=== PATIENT | male | born 2000 | race Asian ===

== ENCOUNTER 2023-06-29 21:14 | Inpatient (IN) ==
--- NOTE | 2023-06-29 22:53 | Emergency Department Note ---
History of Present Illness General Chief complaint: Rectal Pain Stated complaint: RECTAL PAIN, HURTS TO SIT Time Seen by Provider: 06/29/23 22:48 History of Present Illness Maximum Pain Intensity: 9 NAME: KWAKU GATES AGE: 23 SEX: M : 2000 ARRIVES VIA: Walk-In INFORMANT: Patient ED PROVIDER(S): LIBBY Busch, Omer Hernandez MD Patient is a well-appearing 23-year-old male who arrives to the emergency department for evaluation of rectal pain. He reports the pain began on Wednesday, and worsens with sitting. He denies any painful bowel movements, blood in stool, or recent trauma. He states he feels pain to the left lateral rectum, tender to palpation. He denies fever, abdominal pain, nausea, vomiting at this time. Home Medications Medication Instructions Recorded Confirmed Type No Known Home Medications 06/30/23 06/30/23 History Allergies Allergy/AdvReac Type Severity Reaction Status Date / Time No Known Allergies Allergy Verified 06/30/23 02:28 Past Med/Surg History Social History Smoking Status: Former smoker Tobacco Type: Cigarettes Second Hand Exposure: No; Do You Dip or Chew Tobacco: No; Tobacco Cessation Education Requested by Patient: No Hx Alcohol Use: No Hx Substance Use: No Preferred Language: Luxembourger Communication Ability: Effective Vocal Music Teacher Required: No Beliefs That Will Affect Care: None Current Living Situation: Other Current Living Situation Comment: student at [employer] Other Information That Helps Us Care for You: No Feels Safe at Home: Yes Safety Concerns: Feels Safe At This Time Assistive Devices: None Physical Exam Vital Signs Vital Signs - 24 hr 06/29/23 21:25 06/29/23 23:15 06/30/23 02:44 Temperature 36.5 C 37.1 C Temperature Source Temporal Artery Scan Oral Pulse Rate 133 H Pulse Rate [Apical] Pulse Rate [Right Finger] 109 H 92 H Pulse Rate from SpO2 Sensor Pulse Rhythm [Apical] Pulse Strength [Apical] Respiratory Rate 17 20 18 Respiratory Effort / Characteristics Non-Labored Spontaneous Respiratory Depth Normal Respiratory Pattern Blood Pressure 187/115 H Blood Pressure [Left Arm] 144/91 H 164/103 H Blood Pressure Mean 139 Blood Pressure Mean [Left Arm] 108 123 Blood Pressure Position [Left Arm] Right Lateral Pulse Oximetry 94 96 97 Oxygen Delivery Method Room Air Room Air Room Air Oxygen Flow Rate Sepsis Recent Fever Within 48 Hours No Sepsis New/Unexplained Change in Mental Status No Sepsis Action Taken by Nursing No Action Required 06/30/23 03:29 06/30/23 05:00 06/30/23 05:21 Temperature 36.8 C Temperature Source Oral Pulse Rate 108 H Pulse Rate [Apical] Pulse Rate [Right Finger] 98 H Pulse Rate from SpO2 Sensor Pulse Rhythm [Apical] Pulse Strength [Apical] Respiratory Rate 18 Respiratory Effort / Characteristics Non-Labored Spontaneous Non-Labored Respiratory Depth Normal Normal Respiratory Pattern Blood Pressure Blood Pressure [Left Arm] 148/101 H Blood Pressure Mean Blood Pressure Mean [Left Arm] 116 Blood Pressure Position [Left Arm] Pulse Oximetry 97 Oxygen Delivery Method Room Air Oxygen Flow Rate Sepsis Recent Fever Within 48 Hours Sepsis New/Unexplained Change in Mental Status Sepsis Action Taken by Nursing 06/30/23 05:21 06/30/23 06:00 06/30/23 07:00 Temperature Temperature Source Pulse Rate 108 H 90 87 Pulse Rate [Apical] Pulse Rate [Right Finger] Pulse Rate from SpO2 Sensor 108 H 91 H 87 Pulse Rhythm [Apical] Pulse Strength [Apical] Respiratory Rate 28 H 26 H 22 Respiratory Effort / Characteristics Respiratory Depth Respiratory Pattern Blood Pressure Blood Pressure [Left Arm] Blood Pressure Mean Blood Pressure Mean [Left Arm] Blood Pressure Position [Left Arm] Pulse Oximetry 94 95 96 Oxygen Delivery Method Oxygen Flow Rate Sepsis Recent Fever Within 48 Hours Sepsis New/Unexplained Change in Mental Status Sepsis Action Taken by Nursing 06/30/23 08:11 06/30/23 09:43 06/30/23 09:50 Temperature 36.7 C 36.2 C L Temperature Source Oral Temporal Artery Scan Temporal Artery Scan Pulse Rate Pulse Rate [Apical] 92 H 89 Pulse Rate [Right Finger] 97 H Pulse Rate from SpO2 Sensor Pulse Rhythm [Apical] Regular Regular Pulse Strength [Apical] Normal Normal Respiratory Rate 18 19 12 Respiratory Effort / Characteristics Non-Labored Spontaneous Non-Labored Spontaneous Non-Labored Spontaneous Respiratory Depth Normal Normal Normal Respiratory Pattern Regular Regular Regular Blood Pressure Blood Pressure [Left Arm] 144/105 H 157/88 H 146/94 H Blood Pressure Mean Blood Pressure Mean [Left Arm] 118 111 111 Blood Pressure Position [Left Arm] Semi-fowlers Lying Lying Pulse Oximetry 98 95 96 Oxygen Delivery Method Room Air Oxymask Oxymask Oxygen Flow Rate 6 6 Sepsis Recent Fever Within 48 Hours Sepsis New/Unexplained Change in Mental Status Sepsis Action Taken by Nursing 06/30/23 10:00 06/30/23 10:10 06/30/23 10:20 Temperature Temperature Source Temporal Artery Scan Pulse Rate Pulse Rate [Apical] 85 92 H 90 Pulse Rate [Right Finger] Pulse Rate from SpO2 Sensor Pulse Rhythm [Apical] Regular Regular Regular Pulse Strength [Apical] Normal Normal Normal Respiratory Rate 21 17 16 Respiratory Effort / Characteristics Non-Labored Spontaneous Non-Labored Spontaneous Non-Labored Spontaneous Respiratory Depth Normal Normal Normal Respiratory Pattern Regular Regular Regular Blood Pressure Blood Pressure [Left Arm] 136/83 142/89 H 142/85 H Blood Pressure Mean Blood Pressure Mean [Left Arm] 100 106 104 Blood Pressure Position [Left Arm] Lying Semi-fowlers Semi-fowlers Pulse Oximetry 94 97 94 Oxygen Delivery Method Oxymask Oxymask Room Air Oxygen Flow Rate 6 6 Sepsis Recent Fever Within 48 Hours Sepsis New/Unexplained Change in Mental Status Sepsis Action Taken by Nursing 06/30/23 10:30 06/30/23 10:40 06/30/23 10:55 Temperature 36.7 C Temperature Source Temporal Artery Scan Temporal Artery Scan Temporal Artery Scan Pulse Rate Pulse Rate [Apical] 93 H 96 H 91 H Pulse Rate [Right Finger] Pulse Rate from SpO2 Sensor Pulse Rhythm [Apical] Regular Regular Regular Pulse Strength [Apical] Normal Normal Normal Respiratory Rate 16 18 20 Respiratory Effort / Characteristics Non-Labored Spontaneous Non-Labored Spontaneous Non-Labored Spontaneous Respiratory Depth Normal Normal Normal Respiratory Pattern Regular Regular Regular Blood Pressure Blood Pressure [Left Arm] 149/96 H 139/90 143/89 H Blood Pressure Mean Blood Pressure Mean [Left Arm] 113 106 107 Blood Pressure Position [Left Arm] Semi-fowlers Semi-fowlers Semi-fowlers Pulse Oximetry 94 93 94 Oxygen Delivery Method Room Air Room Air Room Air Oxygen Flow Rate Sepsis Recent Fever Within 48 Hours Sepsis New/Unexplained Change in Mental Status Sepsis Action Taken by Nursing 06/30/23 11:10 06/30/23 11:25 06/30/23 11:40 Temperature Temperature Source Temporal Artery Scan Temporal Artery Scan Temporal Artery Scan Pulse Rate Pulse Rate [Apical] 96 H 94 H 93 H Pulse Rate [Right Finger] Pulse Rate from SpO2 Sensor Pulse Rhythm [Apical] Regular Regular Regular Pulse Strength [Apical] Normal Normal Normal Respiratory Rate 17 20 20 Respiratory Effort / Characteristics Non-Labored Spontaneous Non-Labored Spontaneous Non-Labored Spontaneous Respiratory Depth Normal Normal Normal Respiratory Pattern Regular Regular Regular Blood Pressure Blood Pressure [Left Arm] 140/85 138/87 132/84 Blood Pressure Mean Blood Pressure Mean [Left Arm] 103 104 100 Blood Pressure Position [Left Arm] Semi-fowlers Semi-fowlers Semi-fowlers Pulse Oximetry 92 93 92 Oxygen Delivery Method Room Air Room Air Room Air Oxygen Flow Rate Sepsis Recent Fever Within 48 Hours Sepsis New/Unexplained Change in Mental Status Sepsis Action Taken by Nursing 06/30/23 12:10 06/30/23 12:40 Temperature 37.0 C 37.0 C Temperature Source Temporal Artery Scan Temporal Artery Scan Pulse Rate Pulse Rate [Apical] 98 H 98 H Pulse Rate [Right Finger] Pulse Rate from SpO2 Sensor Pulse Rhythm [Apical] Regular Regular Pulse Strength [Apical] Normal Normal Respiratory Rate 20 16 Respiratory Effort / Characteristics Non-Labored Spontaneous Non-Labored Spontaneous Respiratory Depth Normal Normal Respiratory Pattern Regular Regular Blood Pressure Blood Pressure [Left Arm] 134/82 134/82 Blood Pressure Mean Blood Pressure Mean [Left Arm] 99 99 Blood Pressure Position [Left Arm] Semi-fowlers Semi-fowlers Pulse Oximetry 94 95 Oxygen Delivery Method Room Air Room Air Oxygen Flow Rate Sepsis Recent Fever Within 48 Hours Sepsis New/Unexplained Change in Mental Status Sepsis Action Taken by Nursing VITALS: Vitals are noted on the nurse's note and reviewed by myself. Vital signs stable. GENERAL: [], in no acute distress, nondiaphoretic, well-developed well- nourished. SKIN: The skin was without rashes, erythema, edema, or bruising. HEAD: Normocephalic atraumatic. EARS: External auditory canals clear, tympanic membranes pearly mcmanus without erythema or effusion bilaterally. EYES: Pupils equal round and reactive to light and accommodation. Conjunctivae without injection, sclerae without icterus. Extraocular movements intact. NOSE: Patent, turbinates without inflammation or discharge. No sinus tenderness. MOUTH: Mucous membranes moist. Tonsils are not enlarged. Pharynx without erythema or exudate. Uvula midline. Airway patent. Tongue does not deviate. NECK: Supple without nuchal rigidity. No lymphadenopathy. No thyromegaly. Cervical spine is nontender. No JVD. HEART: Regular rate and rhythm without murmurs gallops or rubs. LUNGS: Clear to auscultation bilaterally without wheezes, rales or rhonchi. No retractions or accessory muscle use. ABDOMEN: Positive bowel sounds x 4. Soft, nontender, without masses or organomegaly. Mcleod sign negative. No guarding or rebound tenderness. MUSCULOSKELETAL: No muscle atrophy, erythema, or edema noted. Full range of motion without joint tenderness in all extremities. No tenderness to palpation. Normal gait. Strength 5/5 throughout. NEURO: Patient was alert and oriented to person place and time. No focal neurological deficits. Course Administered Medications Acetaminophen (Acetaminophen 325 Mg Tab) 650 mg PO Q4H PRN PRN Reason: Pain or Fever Stop: 07/30/23 13:11 Last Admin: 06/30/23 15:37 Dose: 650 mg Documented By: GLADYS Piperacillin Sod/Tazobactam (Sod 4.5 gm/ Dextrose) 100 mls @ 25 mls/hr IV Q8H [facility]; Protocol Stop: 07/10/23 07:59 Last Admin: 06/30/23 16:27 Dose: 25 mls/hr Documented By: Infusion: 06/30/23 13:12 Dose: Infused Documented By: Admin: 06/30/23 07:43 Dose: 25 mls/hr Documented By: DEVORAH Pantoprazole Sodium 40 mg/ (Syringe) 10 mls @ 5 mls/min IV DAILY@1100 RAUL Stop: 07/30/23 10:59 Last Admin: 06/30/23 15:37 Dose: 5 mls/min Documented By: GLADYS Lactated Ringer's (Lr) 1,000 mls @ 50 mls/hr IV .Q20H [facility] Stop: 07/30/23 13:11 Last Admin: 06/30/23 13:59 Dose: 50 mls/hr Documented By: GLADYS Insulin Aspart (Insulin Aspart Per Unit Charge) 0 units SC ACHS [facility] Stop: 07/30/23 16:29 Last Admin: 06/30/23 17:57 Dose: 6 units Documented By: GLADYS Co-signed By: KIM Discontinued Medications Bupivacaine HCl/Epinephrine Bitart (Bupivacaine/Epinephrine 0.5% Mpf 1:200,000 30 Ml Vial) Confirm Administered Dose 30 ml .ROUTE .ST-MED ONE Stop: 06/30/23 08:23 Last Admin: 06/30/23 09:39 Dose: 7 ml Documented By: CHANTAL Fentanyl Citrate (Fentanyl Citrate Pf 100 Mcg/2 Ml Vial) 50 mcg IV NOW STA Stop: 06/30/23 04:47 Last Admin: 06/30/23 05:08 Dose: 50 mcg Documented By: JORGE L Sodium Chloride (Nss) 1,000 mls @ 999 mls/hr IV .Q1H1M RAUL Stop: 06/30/23 02:09 Last Infusion: 06/30/23 04:38 Dose: Infused Documented By: JORGE L Admin: 06/30/23 01:24 Dose: 999 mls/hr Documented By: MICHELLE Piperacillin Sod/Tazobactam Sod (Zosyn) 4.5 gm in 100 mls @ 200 mls/hr IV NOW ONE Stop: 06/30/23 02:05 Last Infusion: 06/30/23 04:38 Dose: Infused Documented By: JORGE L Admin: 06/30/23 02:34 Dose: 200 mls/hr Documented By: MICHELLE Daptomycin 300 mg/ Syringe 6 mls @ 3 mls/min IV Q24H [facility]; Protocol Stop: 07/02/23 01:44 Last Admin: 06/30/23 02:34 Dose: 3 mls/min Documented By: MICHELLE Sodium Chloride (Nss) 1,000 mls @ 999 mls/hr IV .Q1H1M RAUL Stop: 06/30/23 03:40 Last Infusion: 06/30/23 04:39 Dose: Infused Documented By: JORGE L Admin: 06/30/23 03:30 Dose: 999 mls/hr Documented By: Infusion: 06/30/23 03:28 Dose: Infused Documented By: Admin: 06/30/23 02:16 Dose: 999 mls/hr Documented By: MICHELLE Acetaminophen (Ofirmev) 1,000 mg in 100 mls @ 400 mls/hr IV NOW STA Stop: 06/30/23 05:00 Last Infusion: 06/30/23 07:43 Dose: Infused Documented By: Admin: 06/30/23 05:12 Dose: 400 mls/hr Documented By: JORGE L Potassium Chloride/Sodium Chloride (Normal Saline W/20 Meq Kcl) 20 meq in 1,000 mls @ 100 mls/hr IV .Q10H [facility]UL Stop: 07/30/23 13:11 Last Admin: 06/30/23 13:48 Dose: Not Given Documented By: GLADYS Insulin Aspart (Insulin Aspart Per Unit Charge) 0 units SC Q6 RAUL Stop: 07/30/23 05:59 Last Admin: 06/30/23 12:39 Dose: 6 units Documented By: DEL Co-signed By: FELICIANO Admin: 06/30/23 06:31 Dose: 4 units Documented By: JORGE L Co-signed By: ALF Insulin Glargine (Lantus Per Unit Charge) 10 units SQ BID RAUL Stop: 07/30/23 13:11 Last Admin: 06/30/23 14:01 Dose: 10 units Documented By: GLADYS Co-signed By: BINA Insulin Human Regular (Novolin-R Insulin Per Unit Charge) 6 units IV NOW STA Stop: 06/30/23 02:28 Last Admin: 06/30/23 02:57 Dose: 6 units Documented By: MICHELLE Co-signed By: ANDREY Insulin Human Regular (Novolin-R Insulin Per Unit Charge) Confirm Administered Dose 10 units .ROUTE .STK-MED ONE Stop: 06/30/23 08:36 Last Admin: 06/30/23 08:37 Dose: 10 units Documented By: ANDREY(2) Co-signed By: JAN Ioversol (Optiray 320 500ml) 100 ml IV ONCE ONE Stop: 06/30/23 01:19 Last Admin: 06/30/23 01:18 Dose: 86 ml Documented By: ANDI Ketorolac Tromethamine (Ketorolac Tromethamine 15 Mg/Ml Vial) 15 mg IV NOW ONE Stop: 06/29/23 22:54 Last Admin: 06/29/23 23:53 Dose: 15 mg Documented By: MICHELLE Medical Decision Making Differential Diagnosis Hemorrhoids, perianal abscess, perianal fistula, infectious proctitis, rectal prolapse, as well as other etiologies Medical Records Attestation: I reviewed the patient's medical records. Home Medications Current Medication List: was personally reviewed by me Laboratory Data Attestation: I reviewed the patient's lab results. Leukocytosis 18.05, no electrolyte abnormalities, glucose 317, with repeat at 293. 06/29/23 23:25 06/29/23 23:45 Lab Results 02/20/24 02/20/24 02/21/24 Range/Units 23:25 23:45 02:00 WBC 18.05 H (4.8-10.8) K/ul RBC 5.30 (4.70-6.10) M/uL Hgb 14.4 (14.0-18.0) g/dl Hct 40.4 L (42.0-52.0) % MCV 76.2 L (80.0-100.0) fL MCH 27.2 (25.0-34.0) pg MCHC 35.6 (32.0-36.0) g/dL RDW Std Deviation 39.1 (36.4-46.3) fL RDW Coeff of Leda 14.4 (11.5-14.5) % Plt Count 293 (130-400) K/uL MPV 12.5 H (9.4-12.4) fL Immature Gran % (Auto) 1.9 % Neut % (Auto) 79.3 % Lymph % (Auto) 12.9 % [place] % (Auto) 4.2 % Eos % (Auto) 1.2 % Baso % (Auto) 0.5 % Neut # (Auto) 14.31 H (1.40-6.50) K/uL Lymph # (Auto) 2.32 (1.20-3.40) K/uL [place] # (Auto) 0.76 H (0.11-0.59) K/uL Eos # (Auto) 0.22 (0.00-0.50) K/uL Baso # (Auto) 0.09 (0.00-0.20) K/uL Immature Gran # (Auto) 0.35 H (0.01-0.20) K/uL Platelet Estimate Normal (Normal) Sodium 134 L (136-145) mmol/L Potassium 3.7 (3.5-5.1) mmol/L Chloride 100 (98-107) mmol/L Carbon Dioxide 22 (21-32) mmol/L Anion Gap 12 H (3-11) BUN 15 (6-23) mg/dl Creatinine 0.83 (0.6-1.4) mg/dl Est Cr Clr Drug Dosing 153.2 ml/min Est GFR ( Amer) 144.8 ml/min Est GFR (Non-Af Amer) 124.9 ml/min BUN/Creatinine Ratio 18.1 (10-20) Glucose 317 H* (70-99(Fasting)) mg/dl POC Glucose (70-99) mg/dl Estimat Average Glucose mg/dl Hemoglobin A1c (4.5-5.6) % Osmolality 300 (280-300) mOsm/kg Lactate 1.3 (0.4-2.0) mmol/L Calcium 9.5 (8.6-10.3) mg/dl Total Bilirubin 0.7 (0.2-1.0) mg/dl AST 26 (13-39) U/L ALT 65 H (7-52) U/L Alkaline Phosphatase 87 (34-104) U/L Total Protein 8.1 (6.0-8.3) gm/dl Albumin 5.2 H (3.4-5.0) gm/dl Globulin 2.9 (2.5-4.0) gm/dl Albumin/Globulin Ratio 1.8 (0.9-2) Procalcitonin Cancelled Urine Color Urine Appearance (Clear) Urine pH (4.5-7.5) Ur Specific [place] (1.000-1.030) Urine Protein (Negative) Urine Glucose (UA) (Negative) Urine Ketones (Negative) Urine Blood (Negative) Urine Nitrite (Negative) Urine Bilirubin (Negative) Urine Urobilinogen (Negative) Ur Leukocyte Esterase (Negative) Urine WBC (Auto) (0-5) /hpf Urine RBC (Auto) (0-4) /hpf U Hyaline Cast (Auto) (0-5) /lpf U Epithel Cells (Auto) (0-5) /lpf Urine Bacteria (Auto) (Negative) Nasal Screen MRSA (PCR) (Negative) 06/30/23 06/30/23 06/30/23 Range/Units 02:01 02:11 02:45 WBC (4.8-10.8) K/ul RBC (4.70-6.10) M/uL Hgb (14.0-18.0) g/dl Hct (42.0-52.0) % MCV (80.0-100.0) fL MCH (25.0-34.0) pg MCHC (32.0-36.0) g/dL RDW Std Deviation (36.4-46.3) fL RDW Coeff of Leda (11.5-14.5) % Plt Count (130-400) K/uL MPV (9.4-12.4) fL Immature Gran % (Auto) % Neut % (Auto) % Lymph % (Auto) % [place] % (Auto) % Eos % (Auto) % Baso % (Auto) % Neut # (Auto) (1.40-6.50) K/uL Lymph # (Auto) (1.20-3.40) K/uL [place] # (Auto) (0.11-0.59) K/uL Eos # (Auto) (0.00-0.50) K/uL Baso # (Auto) (0.00-0.20) K/uL Immature Gran # (Auto) (0.01-0.20) K/uL Platelet Estimate (Normal) Sodium (136-145) mmol/L Potassium (3.5-5.1) mmol/L Chloride (98-107) mmol/L Carbon Dioxide (21-32) mmol/L Anion Gap (3-11) BUN (6-23) mg/dl Creatinine (0.6-1.4) mg/dl Est Cr Clr Drug Dosing ml/min Est GFR ( Amer) ml/min Est GFR (Non-Af Amer) ml/min BUN/Creatinine Ratio (10-20) Glucose (70-99(Fasting)) mg/dl POC Glucose 293 H (70-99) mg/dl Estimat Average Glucose 249 mg/dl Hemoglobin A1c 10.3 H (4.5-5.6) % Osmolality (280-300) mOsm/kg Lactate (0.4-2.0) mmol/L Calcium (8.6-10.3) mg/dl Total Bilirubin (0.2-1.0) mg/dl AST (13-39) U/L ALT (7-52) U/L Alkaline Phosphatase (34-104) U/L Total Protein (6.0-8.3) gm/dl Albumin (3.4-5.0) gm/dl Globulin (2.5-4.0) gm/dl Albumin/Globulin Ratio (0.9-2) Procalcitonin Urine Color Yellow Urine Appearance Clear (Clear) Urine pH 6.0 (4.5-7.5) Ur Specific [place] > 1.045 H (1.000-1.030) Urine Protein 1+ H (Negative) Urine Glucose (UA) 3+ H (Negative) Urine Ketones 2+ H (Negative) Urine Blood Negative (Negative) Urine Nitrite Negative (Negative) Urine Bilirubin Negative (Negative) Urine Urobilinogen Negative (Negative) Ur Leukocyte Esterase Negative (Negative) Urine WBC (Auto) 0 (0-5) /hpf Urine RBC (Auto) 0-4 (0-4) /hpf U Hyaline Cast (Auto) 1-5 (0-5) /lpf U Epithel Cells (Auto) 5-10 H (0-5) /lpf Urine Bacteria (Auto) Negative (Negative) Nasal Screen MRSA (PCR) Negative (Negative) 06/30/23 06/30/23 06/30/23 Range/Units 03:28 06:08 08:29 WBC (4.8-10.8) K/ul RBC (4.70-6.10) M/uL Hgb (14.0-18.0) g/dl Hct (42.0-52.0) % MCV (80.0-100.0) fL MCH (25.0-34.0) pg MCHC (32.0-36.0) g/dL RDW Std Deviation (36.4-46.3) fL RDW Coeff of Leda (11.5-14.5) % Plt Count (130-400) K/uL MPV (9.4-12.4) fL Immature Gran % (Auto) % Neut % (Auto) % Lymph % (Auto) % [place] % (Auto) % Eos % (Auto) % Baso % (Auto) % Neut # (Auto) (1.40-6.50) K/uL Lymph # (Auto) (1.20-3.40) K/uL [place] # (Auto) (0.11-0.59) K/uL Eos # (Auto) (0.00-0.50) K/uL Baso # (Auto) (0.00-0.20) K/uL Immature Gran # (Auto) (0.01-0.20) K/uL Platelet Estimate (Normal) Sodium (136-145) mmol/L Potassium (3.5-5.1) mmol/L Chloride (98-107) mmol/L Carbon Dioxide (21-32) mmol/L Anion Gap (3-11) BUN (6-23) mg/dl Creatinine (0.6-1.4) mg/dl Est Cr Clr Drug Dosing ml/min Est GFR ( Amer) ml/min Est GFR (Non-Af Amer) ml/min BUN/Creatinine Ratio (10-20) Glucose (70-99(Fasting)) mg/dl POC Glucose 259 H 249 H 301 H* (70-99) mg/dl Estimat Average Glucose mg/dl Hemoglobin A1c (4.5-5.6) % Osmolality (280-300) mOsm/kg Lactate (0.4-2.0) mmol/L Calcium (8.6-10.3) mg/dl Total Bilirubin (0.2-1.0) mg/dl AST (13-39) U/L ALT (7-52) U/L Alkaline Phosphatase (34-104) U/L Total Protein (6.0-8.3) gm/dl Albumin (3.4-5.0) gm/dl Globulin (2.5-4.0) gm/dl Albumin/Globulin Ratio (0.9-2) Procalcitonin Urine Color Urine Appearance (Clear) Urine pH (4.5-7.5) Ur Specific [place] (1.000-1.030) Urine Protein (Negative) Urine Glucose (UA) (Negative) Urine Ketones (Negative) Urine Blood (Negative) Urine Nitrite (Negative) Urine Bilirubin (Negative) Urine Urobilinogen (Negative) Ur Leukocyte Esterase (Negative) Urine WBC (Auto) (0-5) /hpf Urine RBC (Auto) (0-4) /hpf U Hyaline Cast (Auto) (0-5) /lpf U Epithel Cells (Auto) (0-5) /lpf Urine Bacteria (Auto) (Negative) Nasal Screen MRSA (PCR) (Negative) 06/30/23 06/30/23 06/30/23 Range/Units 09:27 09:45 12:07 WBC (4.8-10.8) K/ul RBC (4.70-6.10) M/uL Hgb (14.0-18.0) g/dl Hct (42.0-52.0) % MCV (80.0-100.0) fL MCH (25.0-34.0) pg MCHC (32.0-36.0) g/dL RDW Std Deviation (36.4-46.3) fL RDW Coeff of Leda (11.5-14.5) % Plt Count (130-400) K/uL MPV (9.4-12.4) fL Immature Gran % (Auto) % Neut % (Auto) % Lymph % (Auto) % [place] % (Auto) % Eos % (Auto) % Baso % (Auto) % Neut # (Auto) (1.40-6.50) K/uL Lymph # (Auto) (1.20-3.40) K/uL [place] # (Auto) (0.11-0.59) K/uL Eos # (Auto) (0.00-0.50) K/uL Baso # (Auto) (0.00-0.20) K/uL Immature Gran # (Auto) (0.01-0.20) K/uL Platelet Estimate (Normal) Sodium (136-145) mmol/L Potassium (3.5-5.1) mmol/L Chloride (98-107) mmol/L Carbon Dioxide (21-32) mmol/L Anion Gap (3-11) BUN (6-23) mg/dl Creatinine (0.6-1.4) mg/dl Est Cr Clr Drug Dosing ml/min Est GFR ( Amer) ml/min Est GFR (Non-Af Amer) ml/min BUN/Creatinine Ratio (10-20) Glucose (70-99(Fasting)) mg/dl POC Glucose 243 H 232 H 247 H (70-99) mg/dl Estimat Average Glucose mg/dl Hemoglobin A1c (4.5-5.6) % Osmolality (280-300) mOsm/kg Lactate (0.4-2.0) mmol/L Calcium (8.6-10.3) mg/dl Total Bilirubin (0.2-1.0) mg/dl AST (13-39) U/L ALT (7-52) U/L Alkaline Phosphatase (34-104) U/L Total Protein (6.0-8.3) gm/dl Albumin (3.4-5.0) gm/dl Globulin (2.5-4.0) gm/dl Albumin/Globulin Ratio (0.9-2) Procalcitonin Urine Color Urine Appearance (Clear) Urine pH (4.5-7.5) Ur Specific [place] (1.000-1.030) Urine Protein (Negative) Urine Glucose (UA) (Negative) Urine Ketones (Negative) Urine Blood (Negative) Urine Nitrite (Negative) Urine Bilirubin (Negative) Urine Urobilinogen (Negative) Ur Leukocyte Esterase (Negative) Urine WBC (Auto) (0-5) /hpf Urine RBC (Auto) (0-4) /hpf U Hyaline Cast (Auto) (0-5) /lpf U Epithel Cells (Auto) (0-5) /lpf Urine Bacteria (Auto) (Negative) Nasal Screen MRSA (PCR) (Negative) Imaging Data Attestation: I personally reviewed and interpreted this imaging study as follows: My Impression: Left perirectal abscess, measuring 2 cm x 5 cm. Will await formal radiology report. Radiologist's Impression: Pelvis CT 06/29/23 22:53 Exam(s): CT PELVIS With Contrast IV Amt: 86 ML OPTIRAY 320 EXAM: CT Pelvis With Intravenous Contrast CLINICAL HISTORY: Reason for exam: possible rectal abscess. TECHNIQUE: Axial computed tomography images of the pelvis with intravenous contrast. CTDI is 25.23 mGy and DLP is 853.08 mGy-cm. Automated exposure control was utilized for the study. A dose lowering technique was utilized adhering to the principles of ALARA. CONTRAST: Patient received 86 ML OPTIRAY 320 of IV contrast COMPARISON: None FINDINGS: Bowel: Unremarkable. No obstruction. No mucosal thickening. Appendix: Normal appendix partially visualized. Intraperitoneal space: Unremarkable. No free air. No significant fluid collection. Bladder: Unremarkable. No mass. Reproductive: Unremarkable as visualized. Bones/joints: No acute fracture. No dislocation. Soft tissues: Left perirectal abscess, extending into the posterior perianal region, measuring approximately 5.2 x 2.0 x 4.7 cm. Vasculature: Unremarkable. No lower abdominal aortic aneurysm. Lymph nodes: Unremarkable. No enlarged lymph nodes. IMPRESSION: Left perirectal abscess, extending into the posterior perianal region, measuring approximately 5.2 x 2.0 x 4.7 cm. Electronically signed by: Manuela Fishman M.D. 06/30/23 01:43 AM MDM Narrative The patient is a 23-year-old male who arrives to the emergency department for evaluation of rectal pain. Upon examination the patient has tenderness to palpation to the left of the rectum. CT imaging of the pelvis with IV contrast was obtained to rule out infectious or surgical process. CT imaging shows a left perirectal abscess, extending into the posterior perianal region, measuring approximately 5.2 x 2.0 x 4.7 cm. CBC shows leukocytosis, CMP is negative for electrolyte abnormalities, BSG 317 with no known history of diabetes. Upon recognition of the abscess sepsis protocol was obtained including blood cultures, lactate, procalcitonin, serum osmolality, hemoglobin A1c, and MRSA swab for admission protocol. The patient was provided with 3 L of IV normal saline, after the first initial liter the patient's repeat blood glucose was 293. 6 units of regular insulin was ordered as well as a sliding scale for initial glucose management. Dr. Kirkland was consulted from general surgery who agreed to consult the patient, and recommended n.p.o. status. Case management was notified to begin the admission process. At this time the patient will be admitted under the care of of Dr. Kirkland. Impression & Plan Perirectal abscess, Hyperglycemia due to diabetes mellitus, Diabetes mellitus, new onset Discharge Plan Visit Data Chief Complaint: Rectal Pain Stated Complaint: RECTAL PAIN, HURTS TO SIT ED Provider: Omer Hernandez ED Midlevel Provider: Steffany Simpson Discharge Problem: Perirectal abscess, Hyperglycemia due to diabetes mellitus, Diabetes mellitus, new onset Patient Disposition: Admitted As Inpatient Discharge Instructions Interventions: ED Discharge Assessment Last Done: 06/30/23 08:35 Addendum June 30, 2023 19:16 I was consulted by the Advanced Practice Provider and was substantively involved in the patient's visit.This includes aspects of the HPI, MDM, diagnostic interpretations, and disposition/plan. I discussed the case with the ANANDA and agree with the findings and plan as documented in ANANDA Tatiana's note.
[2023-06-29] MEDS: KETOROLAC TROMETHAMINE 15 MG/ML VIAL IV ONE (23:53)
[2023-06-30 00:50] LABS: Albumin Level 5.2 gm/dl (3.4-5.0); Bilirubin,Total 0.7 mg/dl (0.2-1.0); Calcium 9.5 mg/dl (8.6-10.3); Potassium 3.7 mmol/L (3.5-5.1)
[2023-06-30 01:09] LABS: Albumin Globulin Ratio 1.8 (0.9-2); BUN Creatinine Ratio 18.1 (10-20); Creatinine Clr Calc Pharmacy 153.2 ml/min; Est GFR (African American) 144.8 ml/min; Est GFR (Non-African American) 124.9 ml/min; Globulin 2.9 gm/dl (2.5-4.0); Total Protein 8.1 gm/dl (6.0-8.3)
[2023-06-30] MEDS: OPTIRAY 320 500ml IV ONE (01:18)
[2023-06-30 01:20] LABS: Basophils # (auto) 0.09 K/uL (0.00-0.20); Basophils % (auto) 0.5 %; Eosinophils # (auto) 0.22 K/uL (0.00-0.50); Eosinophils % (auto) 1.2 %; Hematocrit (blood only) 40.4 % (42.0-52.0); Hemoglobin 14.4 g/dl (14.0-18.0); Immature Granulocytes # (auto) 0.35 K/uL (0.01-0.20); Immature Granulocytes % (auto) 1.9 %; Lymphocytes # (auto) 2.32 K/uL (1.20-3.40); Lymphocytes % (auto) 12.9 %; Mean Corpuscular Hemoglobin 27.2 pg (25.0-34.0); Mean Corpuscular Hgb Conc 35.6 g/dL (32.0-36.0); Mean Corpuscular Volume 76.2 fL (80.0-100.0); Mean Platelet Volume 12.5 fL (9.4-12.4); Monocytes # (auto) 0.76 K/uL (0.11-0.59); Monocytes % (auto) 4.2 %; Neutrophils # (auto) 14.31 K/uL (1.40-6.50); Neutrophils % (auto) 79.3 %; Platelet Count 293 K/uL (130-400); Platelet Estimate Normal (Normal); RDW Coefficient of Variation 14.4 % (11.5-14.5); RDW Standard Deviation 39.1 fL (36.4-46.3); White Blood Count 18.05 K/ul (4.8-10.8)
[2023-06-30] MEDS: SODIUM CHLORIDE 0.9% 1,000 ML IV SCH ×2 (01:24→02:16)
--- NOTE | 2023-06-30 01:44 | CT Scan Report ---
Exam(s): CT PELVIS With Contrast IV Amt: 86 ML OPTIRAY 320 EXAM: CT Pelvis With Intravenous Contrast CLINICAL HISTORY: Reason for exam: possible rectal abscess. TECHNIQUE: Axial computed tomography images of the pelvis with intravenous contrast. CTDI is 25.23 mGy and DLP is 853.08 mGy-cm. Automated exposure control was utilized for the study. A dose lowering technique was utilized adhering to the principles of ALARA. CONTRAST: Patient received 86 ML OPTIRAY 320 of IV contrast COMPARISON: None FINDINGS: Bowel: Unremarkable. No obstruction. No mucosal thickening. Appendix: Normal appendix partially visualized. Intraperitoneal space: Unremarkable. No free air. No significant fluid collection. Bladder: Unremarkable. No mass. Reproductive: Unremarkable as visualized. Bones/joints: No acute fracture. No dislocation. Soft tissues: Left perirectal abscess, extending into the posterior perianal region, measuring approximately 5.2 x 2.0 x 4.7 cm. Vasculature: Unremarkable. No lower abdominal aortic aneurysm. Lymph nodes: Unremarkable. No enlarged lymph nodes. IMPRESSION: Left perirectal abscess, extending into the posterior perianal region, measuring approximately 5.2 x 2.0 x 4.7 cm. Electronically signed by: Manuela Fishman M.D. 06/30/23 01:43 AM
[2023-06-30] MEDS: DAPTOmycin 300 MG in SYRINGE 0 ML IV SCH ×2 (02:34→20:37)
[2023-06-30] MEDS: PIPERACILLIN/TAZOBACTAM 4.5 GM/100 ML BAG IV ONE (02:34)
[2023-06-30] MEDS ORDERED: CARBOHYDRATES FOR HYPOGLYCEMIA PO PRN ×2 (02:45→13:12)
[2023-06-30] MEDS ORDERED: DEXTROSE 50% 50 ML SYRINGE IV PRN ×2 (02:45→13:12)
[2023-06-30] MEDS ORDERED: GLUCOSE 40% GEL 15 GM TUBE PO PRN ×2 (02:45→13:12)
[2023-06-30] MEDS ORDERED: GLUCOSE 10 TAB/TUBE PO PRN ×2 (02:45→13:12)
[2023-06-30] MEDS ORDERED: GLUCAGON FOR INJ 1 MG VIAL IM PRN (02:45)
[2023-06-30] MEDS: NovoLIN-R INSULIN PER UNIT CHARGE IV STA (02:57)
[2023-06-30 03:02] LABS: Appearance Urine Clear (Clear); Bacteria Urine Automated Negative (Negative); Bilirubin Urine Negative (Negative); Blood Urine Negative (Negative); Color Urine Yellow; Glucose Urine UA 3+ (Negative); Ketones Urine 2+ (Negative); Leukocyte Esterase Urine Negative (Negative); Nitrite Urine Negative (Negative); Protein Urine 1+ (Negative); RBC Urine Automated 0-4 /hpf (0-4); Specific Gravity Urine > 1.045 (1.000-1.030); Urobilinogen Urine Negative (Negative); WBC Urine Automated 0 /hpf (0-5)
[2023-06-30] MEDS: fentaNYL citrate PF 100 MCG/2 ML VIAL IV STA (05:08)
[2023-06-30] MEDS: ACETAMINOPHEN 1,000 MG/100 ML VIAL IV STA (05:12)
[2023-06-30] MEDS: INSULIN ASPART PER UNIT CHARGE SC SCH ×2 (06:31→17:57)
--- NOTE | 2023-06-30 06:52 | History & Physical Report ---
Date of Service June 30, 2023 Assessment & Plan (1) Perirectal abscess: (2) Diabetes mellitus, new onset: (3) Hyperglycemia due to diabetes mellitus: Plan Perirectal abscess- N.p.o. except medications Daptomycin 300mg IV every 24 hours Zosyn 4.5 g IV every 8 hours Acetaminophen 650 mg p.o. every 6 hours as needed for mild pain or fever Morphine sulfate 2 mg IV every 3 hours as needed for moderate to severe pain Zofran 4 mg IV every 6 hours as needed Pantoprazole 40 mg IV daily Diabetes mellitus, new onset, with hyperglycemia- Glucose initially 317 admission Status post 3 L normal saline, patient glucose had improved to 90 Patient was then given 6 units of regular insulin IV with glucose improvement to 259 NSS + KCl 20 mEq at 100 mL/h Continue pharmacy glycemic consult Hemoglobin A1c ordered and pending Family history of father and paternal grandfather with diabetes mellitus Patient will be primarily n.p.o. at this time He will need diabetic education prior to discharge Order random urine microalbumin History of Present Illness Chief Complaint: The patient presents to the emergency department with concerns regarding acute onset of rectal pain noted 2 evenings ago, that was worsening when he was sitting down with pressure on his rectal area Primary Care Provider: [facility] The patient is a 23-year-old male with no significant past medical history, who presents to the emergency department with acute onset of severe rectal pain, worsening over the past 2 days. He has had no previous occurrences of antibiotic or rectal pain. No family history of inflammatory bowel disease. There is a family history of his father and paternal grandfather both having diabetes mellitus. He himself has not had issues with diabetes in the past, however, his glucose was 317 upon admission this evening. Allergies Allergy/AdvReac Type Severity Reaction Status Date / Time No Known Allergies Allergy Verified 06/30/23 02:28 Home Medications Medication Instructions Recorded Confirmed Type No Known Home Medications 06/30/23 06/30/23 History Past Med/Surg History Social History Smoking Status: Former smoker Feels Safe at Home: Yes Review of Systems Review of Systems: The patient denies chest pain, palpitations, shortness of breath, dyspnea on exertion, cough, lower extremity swelling, sore throat, fevers, chills, sweats, weight change, fatigue, nausea, vomiting, diarrhea , constipation, abdominal pain, blood in urine or stool, dysuria, urinary frequency or urgency, lightheadedness, dizziness, headache, rash, abnormal bruising or bleeding, imbalance, focal or generalized weakness, numbness or tingling in arms or legs, generalized arthralgias or myalgias, back or neck pain, or night sweats. The review of systems is otherwise negative other than for that already noted above, and at least 10 systems have been reviewed. Physical Exam Physical Exam: The patient is awake, alert and oriented 3, well developed and well nourished, normocephalic and atraumatic, lying in bed and in no acute distress. HEENT--PERRL, EOMI, mucous membranes and oropharynx mildly dry. Neck--supple. No JVD. No bruits. Thyroid normal, trachea midline, no adenopathy. Heart--normal S1 and S2. No murmurs, rubs or gallops. Lungs--clear bilaterally, no respiratory distress, no accessory muscle use. Abdomen--normal bowel sounds and soft. Nontender. Nondistended, no hernias or masses, no organomegaly. Extremities--no cyanosis or clubbing. No edema. Dermatologic--normal skin turgor, normal color, no abnormal lymph nodes, no rash. Neurologic--cranial nerves II through XII grossly intact. Rheumatologic--normal range of motion. Psychiatric--normal affect. Results & Data Results & Data Vital Signs (Past 12 Hours) Vital Signs Temp Pulse Pulse Resp BP BP Pulse Ox 06/30/23 05:21 108 H 06/30/23 03:29 36.8 C 98 H 18 148/101 H 97 06/30/23 02:44 37.1 C 92 H 18 164/103 H 97 06/29/23 23:15 109 H 20 144/91 H 96 06/29/23 21:25 36.5 C 133 H 17 187/115 H 94 O2 Del Method 06/30/23 05:21 06/30/23 03:29 Room Air 06/30/23 02:44 Room Air 06/29/23 23:15 Room Air 06/29/23 21:25 Room Air Laboratory Results Laboratory Results WBC 18.05 K/ul (4.8-10.8) H 06/29/23 23: RBC 5.30 M/uL (4.70-6.10) 06/29/23 23: Hgb 14.4 g/dl (14.0-18.0) 06/29/23: Hct 40.4 % (42.0-52.0) L 06/29/23: MCV 76.2 fL (80.0-100.0) L 06/29/23: MCH 27.2 pg (25.0-34.0) 06/29/23 23: MCHC 35.6 g/dL (32.0-36.0) 06/29/23: RDW Std Deviation 39.1 fL (36.4-46.3) 06/29/23: RDW Coeff of Leda 14.4 % (11.5-14.5) 06/29/23: Plt Count 293 K/uL (130-400) 06/29/23: MPV 12.5 fL (9.4-12.4) H 06/29/23 23: Immature Gran % (Auto) 1.9 % 06/29/23 23: Neut % (Auto) 79.3 % 06/29/23 23: Lymph % (Auto) 12.9 % 06/29/23 23: [place] % (Auto) 4.2 % 06/29/23 23:25 Eos % (Auto) 1.2 % 06/29/23: Baso % (Auto) 0.5 % 06/29/23 23: Neut # (Auto) 14.31 K/uL (1.40-6.50) H 06/29/23 23:25 Lymph # (Auto) 2.32 K/uL (1.20-3.40) 06/29/23 23:25 [place] # (Auto) 0.76 K/uL (0.11-0.59) H 06/29/23 23: Eos # (Auto) 0.22 K/uL (0.00-0.50) 06/29/23 23:25 Baso # (Auto) 0.09 K/uL (0.00-0.20) 06/29/23 23: Immature Gran # (Auto) 0.35 K/uL (0.01-0.20) H 06/29/23 23:25 Platelet Estimate Normal (Normal) 06/29/23 23:25 Sodium 134 mmol/L (136-145) L 06/29/23 23:45 Potassium 3.7 mmol/L (3.5-5.1) 06/29/23 23:45 Chloride 100 mmol/L (98-107) 06/29/23 23:45 Carbon Dioxide 22 mmol/L (21-32) 06/29/23 23:45 Anion Gap 12 (3-11) H 06/29/23 23:45 BUN 15 mg/dl (6-23) 06/29/23 23:45 Creatinine 0.83 mg/dl (0.6-1.4) 06/29/23 23:45 Est Cr Clr Drug Dosing 153.2 ml/min 06/29/23 23:45 Est GFR ( Amer) 144.8 ml/min 06/29/23 23:45 Est GFR (Non-Af Amer) 124.9 ml/min 06/29/23 23:45 BUN/Creatinine Ratio 18.1 (10-20) 06/29/23 23:45 Glucose 317 mg/dl (70-99(Fasting)) H* 06/29/23 23:45 POC Glucose 249 mg/dl (70-99) H 06/30/23 06:08 Osmolality 300 mOsm/kg (280-300) 06/30/23 02:00 Lactate 1.3 mmol/L (0.4-2.0) 06/30/23 02:00 Calcium 9.5 mg/dl (8.6-10.3) 06/29/23 23:45 Total Bilirubin 0.7 mg/dl (0.2-1.0) 06/29/23 23:45 AST 26 U/L (13-39) 06/29/23 23:45 ALT 65 U/L (7-52) H 06/29/23 23:45 Alkaline Phosphatase 87 U/L (34-104) 06/29/23 23:45 Total Protein 8.1 gm/dl (6.0-8.3) 06/29/23 23:45 Albumin 5.2 gm/dl (3.4-5.0) H 06/29/23 23:45 Globulin 2.9 gm/dl (2.5-4.0) 06/29/23 23:45 Albumin/Globulin Ratio 1.8 (0.9-2) 06/29/23 23:45 Procalcitonin Cancelled 06/30/23 02:00 Urine Color Yellow 06/30/23 02:45 Urine Appearance Clear (Clear) 06/30/23 02:45 Urine pH 6.0 (4.5-7.5) 06/30/23 02:45 Ur Specific [place] > 1.045 (1.000-1.030) H 06/30/23 02:45 Urine Protein 1+ (Negative) H 06/30/23 02:45 Urine Glucose (UA) 3+ (Negative) H 06/30/23 02:45 Urine Ketones 2+ (Negative) H 06/30/23 02:45 Urine Blood Negative (Negative) 06/30/23 02:45 Urine Nitrite Negative (Negative) 06/30/23 02:45 Urine Bilirubin Negative (Negative) 06/30/23 02:45 Urine Urobilinogen Negative (Negative) 06/30/23 02:45 Ur Leukocyte Esterase Negative (Negative) 06/30/23 02:45 Urine WBC (Auto) 0 /hpf (0-5) 06/30/23 02:45 Urine RBC (Auto) 0-4 /hpf (0-4) 06/30/23 02:45 U Hyaline Cast (Auto) 1-5 /lpf (0-5) 06/30/23 02:45 U Epithel Cells (Auto) 5-10 /lpf (0-5) H 06/30/23 02:45 Urine Bacteria (Auto) Negative (Negative) 06/30/23 02:45 Nasal Screen MRSA (PCR) Negative (Negative) 06/30/23 02:[address] 06/29/23 22:53 Exam(s): CT PELVIS With Contrast IV Amt: 86 ML OPTIRAY 320 EXAM: CT Pelvis With Intravenous Contrast CLINICAL HISTORY: Reason for exam: possible rectal abscess. TECHNIQUE: Axial computed tomography images of the pelvis with intravenous contrast. CTDI is 25.23 mGy and DLP is 853.08 mGy-cm. Automated exposure control was utilized for the study. A dose lowering technique was utilized adhering to the principles of ALARA. CONTRAST: Patient received 86 ML OPTIRAY 320 of IV contrast COMPARISON: None FINDINGS: Bowel: Unremarkable. No obstruction. No mucosal thickening. Appendix: Normal appendix partially visualized. Intraperitoneal space: Unremarkable. No free air. No significant fluid collection. Bladder: Unremarkable. No mass. Reproductive: Unremarkable as visualized. Bones/joints: No acute fracture. No dislocation. Soft tissues: Left perirectal abscess, extending into the posterior perianal region, measuring approximately 5.2 x 2.0 x 4.7 cm. Vasculature: Unremarkable. No lower abdominal aortic aneurysm. Lymph nodes: Unremarkable. No enlarged lymph nodes. IMPRESSION: Left perirectal abscess, extending into the posterior perianal region, measuring approximately 5.2 x 2.0 x 4.7 cm. Electronically signed by: Manuela Fishman M.D. 06/30/23 01:43 AM Code Status & VTE Plan Code Status Full code VTE Prophylaxis Plan VTE Prophylaxis will be ordered: Yes PG Care Time/CCT Total # of Minutes Spent Total Time Spent with Patient: Total time spent is greater than 50% in coordination of care (as documented) at patient's floor/unit and/or counseling patient: Coding Level of Care Code 84821 INT INP/OBS CARE 3/75MIN Diagnoses Perirectal abscess K61.1 Diabetes mellitus, new onset E11.9 Hyperglycemia due to diabetes mellitus E11.65
[2023-06-30] MEDS ORDERED: MoRPHine SULFATE 2 MG/ML CARP IV PRN ×2 (06:56→13:12)
[2023-06-30] MEDS: PIPERACILLIN/TAZOBACTAM 4.5 GM in DEXTROSE 5% MINI-B 100 ML IV SCH (07:43)
[2023-06-30 07:54] LABS: Estimated Average Glucose 249 mg/dl; Hemoglobin A1C 10.3 % (4.5-5.6)
--- NOTE | 2023-06-30 08:01 | Surgery Consultation ---
Date of Consultation June 30, 2023 Assessment & Plan (1) Perirectal abscess: will need I&D will do in the OR this AM, consent obtained IV abx from surgical standpoint can discharge after I&D medical treatment of blood sugars and admission per medical team History of Present Illness Attending Physician: Cy Mayers MD History of Present Illness This is a 23-year-old male who came to ED with rectal pain over the last few days. A CT shows a perirectal abscess in the left posterior quadrant. His glucose was 317 in ED. He has no known diagnosis of diabetes. Allergies Allergy/AdvReac Type Severity Reaction Status Date / Time No Known Allergies Allergy Verified 06/30/23 02:28 Home Medications Medication Instructions Recorded Confirmed Type No Known Home Medications 06/30/23 06/30/23 History Patient History Social History Smoking Status: Former smoker Feels Safe at Home: Yes Review of Systems Constitutional: + fever; no chills and no anorexia Eyes: no problem reported Ear, Nose, Mouth, Throat: no problem reported Respiratory: no cough and no dyspnea Cardiovascular: no chest pain Gastrointestinal: no abdominal pain, no nausea, no vomiting and no change in bowel habits Genitourinary: no dysuria Integumentary: no lesions Neurologic: no localized weakness and no generalized weakness Psychiatric: no behavioral changes Hematologic / Lymphatic: no easy bleeding and no easy bruising Physical Exam Constitutional: WD/WN, vitals as above Eyes: PERRL, conjunctivae normal, anicteric sclerae Neck: trachea midline Respiratory: normal respiratory effort, lungs clear to auscultation Cardiovascular: RRR, no murmur, no edema Gastrointestinal (Abdomen): Inspection/Auscultation: abdomen normal to inspection and normal bowel sounds; abdomen not distended Percussion/Palpation: abdomen soft; abdomen nontender perirectal abscess at 5 o'colck Musculoskeletal: Head/Neck/Chest: normocephalic and head atraumatic Skin: no rashes, warm and dry Results & Data Vital Signs (Past 12 Hours) Vital Signs Temp Pulse Pulse Resp BP BP Pulse Ox 06/30/23 07:00 87 22 96 06/30/23 06:00 90 26 H 95 06/30/23 05:21 108 H 28 H 94 06/30/23 05:21 108 H 06/30/23 03:29 36.8 C 98 H 18 148/101 H 97 06/30/23 02:44 37.1 C 92 H 18 164/103 H 97 06/29/23 23:15 109 H 20 144/91 H 96 06/29/23 21:25 36.5 C 133 H 17 187/115 H 94 O2 Del Method 06/30/23 07:00 06/30/23 06:00 06/30/23 05:21 06/30/23 05:21 06/30/23 03:29 Room Air 06/30/23 02:44 Room Air 06/29/23 23:15 Room Air 06/29/23 21:25 Room Air Diagnostic Findings EXAM: CT Pelvis With Intravenous Contrast CLINICAL HISTORY: Reason for exam: possible rectal abscess. TECHNIQUE: Axial computed tomography images of the pelvis with intravenous contrast. CTDI is 25.23 mGy and DLP is 853.08 mGy-cm. Automated exposure control was utilized for the study. A dose lowering technique was utilized adhering to the principles of ALARA. CONTRAST: Patient received 86 ML OPTIRAY 320 of IV contrast COMPARISON: None FINDINGS: Bowel: Unremarkable. No obstruction. No mucosal thickening. Appendix: Normal appendix partially visualized. Intraperitoneal space: Unremarkable. No free air. No significant fluid collection. Bladder: Unremarkable. No mass. Reproductive: Unremarkable as visualized. Bones/joints: No acute fracture. No dislocation. Soft tissues: Left perirectal abscess, extending into the posterior perianal region, measuring approximately 5.2 x 2.0 x 4.7 cm. Vasculature: Unremarkable. No lower abdominal aortic aneurysm. Lymph nodes: Unremarkable. No enlarged lymph nodes. IMPRESSION: Left perirectal abscess, extending into the posterior perianal region, measuring approximately 5.2 x 2.0 x 4.7 cm.
[2023-06-30] MEDS ORDERED: LIDOCAINE 2% 2 ML VIAL/AMP(20MG/ML) INFIL ONE (08:14)
[2023-06-30] MEDS ORDERED: PROPOFOL IV EMULSION 10 MG/ML 20 ML VIAL IV ONE (08:14)
[2023-06-30] MEDS ORDERED: DEXAMETHASONE SOD INJ 4 MG/ML VIAL ONE (08:14)
[2023-06-30] MEDS ORDERED: ONDANSETRON INJ 2 MG/ML 2 ML VIAL ONE (08:14)
[2023-06-30] MEDS ORDERED: MIDAZOLAM HCL 1 MG/ML 2ML VIAL ONE (08:14)
[2023-06-30] MEDS ORDERED: fentaNYL citrate PF 100 MCG/2 ML VIAL ONE ×2 (08:15→09:26)
[2023-06-30] MEDS ORDERED: GELATIN SPONGE SZ 100 ONE (08:22)
[2023-06-30] MEDS ORDERED: ATROPINE SULFATE 0.1 MG/ML 10ML SYR IV PRN (08:27)
[2023-06-30] MEDS ORDERED: ONDANSETRON INJ 2 MG/ML 2 ML VIAL IV PRN ×3 (08:27→13:12)
[2023-06-30] MEDS ORDERED: ePHEDrine sulfate 50 MG/ML AMP IV PRN (08:27)
[2023-06-30] MEDS ORDERED: PROMETHAZINE HCL 6.25 MG in SODIUM CHLORIDE 0.9% 50 ML IV PRN (08:27)
[2023-06-30] MEDS ORDERED: fentaNYL citrate PF 100 MCG/2 ML VIAL IV PRN (08:27)
--- NOTE | 2023-06-30 08:27 | Anesthesiology Consultation ---
Date of Service June 30, 2023 Assessment & Plan Chart Review Chart Review: Acceptable Risk for Surgery and Patient NOT seen in Pre Admission Testing Consults Requested none ASA ASA3 Proposed Anesthesia Anesthesia Type: General Risk / Benefits Reviewed With: PT / POA / Parent / Guardian, Accepts Plan and Informed Consent Obtained History Surgery Operation Date: 06/30/23 07:00 Proposed Procedures p Incision and Drainage Perirectal Abscess - Thony Kirkland MD Height/Weight Height: 6 ft Weight: 92.8 kg Allergies Allergy/AdvReac Type Severity Reaction Status Date / Time No Known Allergies Allergy Verified 06/30/23 02:28 Medications Home Medications Medication Instructions Recorded Confirmed Last Taken No Known Home Medications 06/30/23 06/30/23 Unknown Active Medications Generic Name Dose Route Start Last Admin Trade Name Freq PRN Reason Stop Dose Admin Daptomycin 300 mg/ Syringe 6 mls @ 3 mls/min 06/30/23 01:45 06/30/23 02:34 IV 07/02/23 01:44 3 mls/min Q24H RAUL Administration Protocol Piperacillin Sod/Tazobactam 100 mls @ 25 mls/hr 06/30/23 08:00 06/30/23 07:43 Sod 4.5 gm/ Dextrose IV 07/10/23 07:59 25 mls/hr Q8H RAUL Administration Protocol Insulin Aspart 0 units 06/30/23 06:00 06/30/23 06:31 Insulin Aspart Per Unit Charge SC 07/30/23 05:59 4 units Q6 RAUL Administration Exercise / Class Metabolic Activity II 4-5 Yardwork/Stairs/Walk up hill Past Anesthesia History No Hx of Anesthesia Complications and No Family Hx of Anesthesia Complications History of PONV No Hx of PONV and No Hx of Motion Sickness Social History Smoking Status: Former smoker Physical Exam Vital Signs Last Vital Signs Temp 36.8 C 06/30/23 03:29 Pulse 87 06/30/23 07:00 Resp 22 06/30/23 07:00 BP 148/101 H 06/30/23 03:29 Pulse Ox 96 06/30/23 07:00 O2 Del Method Room Air 06/30/23 03:29 ENMT Mouth: no dentition abnormality Thyromental Distance: > or= 3.5 Finger Breadths Mallampati Class: II Neck normal visual inspection Respiratory normal respiratory effort Auscultation: lungs clear to auscultation bilaterally Cardiovascular Rate/Rhythm: regular rate and regular rhythm Psychiatric Orientation: alert Testing Laboratory Results 06/29/23 23:25 06/29/23 23:45 Hemoglobin A1c 10.3 % (4.5-5.6) H 06/30/23 02:01 Urine Color Yellow 06/30/23 02:45 Urine Appearance Clear (Clear) 06/30/23 02:45 Urine pH 6.0 (4.5-7.5) 06/30/23 02:45 Ur Specific [place] > 1.045 (1.000-1.030) H 06/30/23 02:45 Urine Protein 1+ (Negative) H 06/30/23 02:45 Urine Glucose (UA) 3+ (Negative) H 06/30/23 02:45 Urine Ketones 2+ (Negative) H 06/30/23 02:45 Urine Nitrite Negative (Negative) 06/30/23 02:45 Ur Leukocyte Esterase Negative (Negative) 06/30/23 02:45 Urine WBC (Auto) 0 /hpf (0-5) 06/30/23 02:45 Urine RBC (Auto) 0-4 /hpf (0-4) 06/30/23 02:45 U Hyaline Cast (Auto) 1-5 /lpf (0-5) 06/30/23 02:45 U Epithel Cells (Auto) 5-10 /lpf (0-5) H 06/30/23 02:45 Urine Bacteria (Auto) Negative (Negative) 06/30/23 02:45 06/30/23 06/30/23 06/30/23 06:08 03:28 02:11 POC Glucose 249 H 259 H 293 H
[2023-06-30] MEDS ORDERED: NovoLIN-R INSULIN PER UNIT CHARGE SC STA (08:30)
[2023-06-30] MEDS: NovoLIN-R INSULIN PER UNIT CHARGE ONE (08:37)
[2023-06-30] MEDS ORDERED: SUGAMMADEX SODIUM 200 MG/2 ML VIAL IV ONE (09:24)
--- NOTE | 2023-06-30 09:34 | Post Operative Brief Note ---
Immediate Post Op Note v1 Date of Surgery June 30, 2023 Pre & Post Diagnosis Operation Date: 06/30/23 07:00 <No data on this case meets the specified criteria> I identified the patient and participated in the time-out.: Yes Procedure Operation Date: 06/30/23 07:00 <No data on this case meets the specified criteria> Surgeon Thony Kirkland MD Auto Repair Shop Manager none Estimated Blood Loss 15 Findings Consistent with Post-Op Diagnosis
[2023-06-30] MEDS: BUPIVACAINE/EPINEPHRINE 0.5% MPF 1:200,000 30 ML VIAL ONE (09:39)
--- NOTE | 2023-06-30 09:40 | Operative Report ---
Post Operative Report Pre & Post Diagnosis Operation Date: 06/30/23 07:00 <No data on this case meets the specified criteria> I identified the patient and participated in the time-out.: Yes Procedure Operation Date: 06/30/23 07:00 I&D of perirectal abscess at the 5 o'clock position Surgeon Thony Kirkland MD Oil Burner Repairer none Estimated Blood Loss 15 Findings Consistent with Post-Op Diagnosis Perirectal abscess at the 5 o'clock position. With a small amount of pus and a large amount of inflammatory change. Specimens Interoperative cultures taken Drains None Anesthesia Type General Complications None Indications This is a 23-year-old male who was admitted to the ED last night with acute onset of diabetes. He had rectal pain and a CT scan was done which shows an inflammatory mass in his left posterior perirectal area. Talk to him in detail and recommended I&D. He understands the risks and consented to the procedure. Description of Procedure Patient was taken to the OR and underwent excellent general endotracheal anesthesia. His perianal area was prepped and draped in normal fashion. He was in the lithotomy position. Rectal exam was performed showed a small amount of fluctuance in his left posterior perirectal area at the 5 o'clock position. An incision was made over this area although there was not a lot of fluctuance.Small amount of pus was expressed and interoperative cultures were taken. A finger was then used to probe this area and extend this posteriorly and superiorly to break down some loculated inflammatory changes. No further pus pockets could be appreciated. The cavity was then irrigated. Iodoform gauze and used to pack this deep wound. Sterile dressing was applied. 0.5% Marcaine with local was used to create a local block. She tolerated procedure without complications was sent to the postop recovery for period of observation. He will then be sent to the floor for the rest of his care. I attest to the content of the Intraoperative Record and any orders documented therein. Any exceptions are noted below.
[2023-06-30] MEDS ORDERED: PIPERACILLIN/TAZOBACTAM 4.5 GM in DEXTROSE 5% MINI-B 100 ML IV SCH ×2 (09:45→17:45)
--- NOTE | 2023-06-30 11:36 | Anesthesiology Progress Note ---
Date of Service June 30, 2023 Anesthesia Post Procedure Vital Signs Vital Signs: Temp Pulse Pulse Pulse Resp BP BP 06/30/23 11:25 94 H 20 138/87 06/30/23 11:10 96 H 17 140/85 06/30/23 10:55 91 H 20 143/89 H 06/30/23 10:40 96 H 18 139/90 06/30/23 10:30 36.7 C 93 H 16 149/96 H 06/30/23 10:20 90 16 142/85 H 06/30/23 10:10 92 H 17 142/89 H 06/30/23 10:00 85 21 136/83 06/30/23 09:50 89 12 146/94 H 06/30/23 09:43 36.2 C L 92 H 19 157/88 H 06/30/23 08:11 36.7 C 97 H 18 144/105 H 06/30/23 07:00 87 22 06/30/23 06:00 90 26 H 06/30/23 05:21 108 H 28 H 06/30/23 05:21 108 H 06/30/23 03:29 36.8 C 98 H 18 148/101 H 06/30/23 02:44 37.1 C 92 H 18 164/103 H 06/29/23 23:15 109 H 20 144/91 H 06/29/23 21:25 36.5 C 133 H 17 187/115 H Pulse Ox O2 Del Method O2 Flow Rate 06/30/23 11:25 93 Room Air 06/30/23 11:10 92 Room Air 06/30/23 10:55 94 Room Air 06/30/23 10:40 93 Room Air 06/30/23 10:30 94 Room Air 06/30/23 10:20 94 Room Air 06/30/23 10:10 97 Oxymask 6 06/30/23 10:00 94 Oxymask 6 06/30/23 09:50 96 Oxymask 6 06/30/23 09:43 95 Oxymask 6 06/30/23 08:11 98 Room Air 06/30/23 07:00 96 06/30/23 06:00 95 06/30/23 05:21 94 06/30/23 05:21 06/30/23 03:29 97 Room Air 06/30/23 02:44 97 Room Air 06/29/23 23:15 96 Room Air 06/29/23 21:25 94 Room Air Transfer of Care Handoff Completed per policy Notes Mental Status: alert / awake / arousable Patient Amnestic to Procedure: Yes Nausea / Vomiting: adequately controlled Pain: adequately controlled Airway Patency, RR, SpO2: stable & adequate BP & HR: stable & adequate Hydration State: stable & adequate Anesthetic Complications: no major complications apparent
[2023-06-30] MEDS ORDERED: GLUCAGON FOR INJ 1 MG VIAL SQ PRN (13:12)
[2023-06-30] MEDS ORDERED: ACETAMINOPHEN 325 MG TAB PO PRN (13:12)
[2023-06-30] MEDS: NSS + 20MEQ KCL 20 MEQ/1,000 ML BAG IV SCH (13:48)
[2023-06-30] MEDS: LACTATED RINGER'S 1,000 ML IV SCH (13:59)
[2023-06-30] MEDS: LANTUS PER UNIT CHARGE SQ SCH ×2 (14:01→20:30)
[2023-06-30] MEDS ORDERED: PHARMACY GLYCEMIC MGMT CONSULT PRN (14:19)
--- NOTE | 2023-06-30 14:45 | Pharmacy Report ---
Pharmacy Glycemic Short Note 2 - Date of Service June 30, 2023 - Glycemic Short BSG Results (Last 24 hours): 06/29/23 06/30/23 06/30/23 23:45 02:11 03:28 Glucose 317 H* POC Glucose 293 H 259 H 06/30/23 06/30/23 06/30/23 06:08 08:29 09:27 Glucose POC Glucose 249 H 301 H* 243 H 06/30/23 06/30/23 09:45 12:07 Glucose POC Glucose 232 H 247 H OUTPATIENT ANTIDIABETIC REGIMEN: * n/a - new diagnosis HbA1c: 10.3% (06/30/23) ASSESSMENT: * HY is a 23 year old male with new diagnosis of diabetes (late type 1 vs. type 2?) * Patient originally presented overnight w/ complaint of acute rectal pain, found to have perirectal abscess * Now POD #0 s/p incision and drainage of perirectal abscess * Currently NPO, will reassess insulin orders if diet started postoperatively * Received 10 units of basal and multiple doses of SC/IV bolus insulin prior to consult * Will be conservative with initial insulin dosing given insulin naivety * Anion gap of 12, but serum bicarbonate is WNL * LR infusing @50 mL/hr, receiving broad spectrum antibiotic regimen (daptomycin + Zosyn) PLAN FOR INPATIENT GLYCEMIC CONTROL: * Basal insulin * Lantus 10 units SC x 1 this morning * Lantus 0-5-10 units SC BID thereafter * Reassess basal in AM * Bolus insulin * NovoLog per scale ACHS or Q6hrs while NPO * Goal Range: Low 110 mg/dL - High 140 mg/dL * Correction Factor: 25 mg/dL/unit * Nutritional / Prandial insulin per carb ratio of 1 unit per 8 grams CHO consumed
[2023-06-30] MEDS: ACETAMINOPHEN 325 MG TAB PO PRN (15:37)
[2023-06-30] MEDS: PANTOprazole 40 MG in SYRINGE 0 ML IV SCH (15:37)
[2023-06-30] MEDS ORDERED: Nursing to Pharmacy Communication SCH (16:00)
--- NOTE | 2023-06-30 18:31 | Hospitalist Progress Note ---
Date of Service June 30, 2023 Assessment & Plan (1) Perirectal abscess: Plan: Daptomycin 300mg IV every 24 hours (last dose 07/10/23) Zosyn 4.5 g IV every 8 hours (last dose 07/10/23) Acetaminophen 650 mg p.o. every 6 hours as needed for mild pain or fever Morphine sulfate 2 mg IV every 3 hours as needed for moderate to severe pain Zofran 4 mg IV every 6 hours as needed Pantoprazole 40 mg IV daily I&D of perirectal abscess on 06/30/2023 - per operative report, small amount of pus and large amount of inflammatory change was noted Interoperative cultures taken -- results pending (2) Diabetes mellitus, new onset: Plan: Family history of father and paternal grandfather with diabetes mellitus Hemoglobin A1c - 10.3 Pharmacy glycemic consult Consulted territory sales consultant to speak with patient prior to discharge Random urine microalbumin - results pending (3) Hyperglycemia due to diabetes mellitus: Plan: Glucose initially 317 admission Status post 3 L normal saline, patient glucose had improved to 290 Patient was then given 6 units of regular insulin IV in ED with glucose improvement to 259 POC Glucose 192 in evening of 06/30/23 Plan CODE STATUS: Full code Admission and Anticipated Discharge Date Admission Date: June 30, 2023 Subjective Patient was seen and evaluated at bedside. He was very drowsy due to anesthesia from I&D for perirectal abscess. Patient had no complaints at this time. He denies nausea, headache, lightheadedness, abdominal pain, urinary symptoms, shortness of breath, or chest pain. He reports he has never had known issues with blood sugar previously. He states both his father and grandfather both have diabetes, but unsure if type I or type II. Glucose is trending in the right direction, with most recent POC glucose of 192. A consult was placed to pharmacy glycemic management. His HgbA1c is 10.3. Consulted territory sales consultant to have discussion with patient prior to discharge. Random urine microalbumin is pending. Interoperative wound cultures are pending. Physical Exam Physical Exam: General: Patient drowsy due to anesthesia, no acute distress, nondiaphoretic, well-developed, well-nourished. Cardiac: Regular rate and rhythm without murmurs gallops or rubs. Pulm: Clear to auscultation bilaterally without wheezes, rales or rhonchi. No retractions or accessory muscle use. Abdominal: Positive bowel sounds x 4. Soft, nontender, without masses or organomegaly. No guarding or rebound tenderness. Neuro: A&O x3. No focal neurological deficits. Results & Data Results & Data Vital Signs (Past 12 Hours) Vital Signs Temp Pulse Pulse Pulse Pulse Resp BP 06/30/23 15:40 37.8 C H 113 H 18 147/76 H 06/30/23 14:00 102 H 06/30/23 13:31 06/30/23 13:26 36.9 C 101 H 16 135/91 06/30/23 12:40 37.0 C 98 H 16 134/82 06/30/23 12:10 37.0 C 98 H 20 134/82 06/30/23 11:40 93 H 20 132/84 06/30/23 11:25 94 H 20 138/87 06/30/23 11:10 96 H 17 140/85 06/30/23 10:55 91 H 20 143/89 H 06/30/23 10:40 96 H 18 139/90 06/30/23 10:30 36.7 C 93 H 16 149/96 H 06/30/23 10:20 90 16 142/85 H 06/30/23 10:10 92 H 17 142/89 H 06/30/23 10:00 85 21 136/83 06/30/23 09:50 89 12 146/94 H 06/30/23 09:43 36.2 C L 92 H 19 157/88 H 06/30/23 08:11 36.7 C 97 H 18 144/105 H 06/30/23 07:00 87 22 Pulse Ox O2 Del Method O2 Flow Rate 06/30/23 15:40 94 Room Air 06/30/23 14:00 06/30/23 13:31 Room Air 06/30/23 13:26 96 Room Air 06/30/23 12:40 95 Room Air 06/30/23 12:10 94 Room Air 06/30/23 11:40 92 Room Air 06/30/23 11:25 93 Room Air 06/30/23 11:10 92 Room Air 06/30/23 10:55 94 Room Air 06/30/23 10:40 93 Room Air 06/30/23 10:30 94 Room Air 06/30/23 10:20 94 Room Air 06/30/23 10:10 97 Oxymask 6 06/30/23 10:00 94 Oxymask 6 06/30/23 09:50 96 Oxymask 6 06/30/23 09:43 95 Oxymask 6 06/30/23 08:11 98 Room Air 06/30/23 07:00 96 Laboratory Results Reviewed CBC Reviewed CMP Reviewed UA Reviewed wound culture Diagnostic Findings Reviewed CT pelvis - Left perirectal abscess, extending into the posterior perianal region, measuring approximately 5.2 x 2.0 x 4.7 cm. PG Care Time/CCT Total # of Minutes Spent Total Time Spent with Patient: Total time spent is greater than 50% in coordination of care (as documented) at patient's floor/unit and/or counseling patient: Coding Level of Care Code None Diagnoses Perirectal abscess K61.1 Diabetes mellitus, new onset E11.9 Hyperglycemia due to diabetes mellitus E11.65
[2023-07-01] MEDS: INSULIN ASPART PER UNIT CHARGE SC SCH (00:18)
[2023-07-01] MEDS: oxyCODONE/ACETAMINOPHEN 5mg/325mg TAB PO PRN (04:40)
[2023-07-01 07:11] LABS: Basophils # (auto) 0.05 K/uL (0.00-0.20); Basophils % (auto) 0.3 %; Eosinophils # (auto) 0.24 K/uL (0.00-0.50); Eosinophils % (auto) 1.7 %; Hematocrit (blood only) 39.3 % (42.0-52.0); Hemoglobin 13.2 g/dl (14.0-18.0); Immature Granulocytes # (auto) 0.19 K/uL (0.01-0.20); Immature Granulocytes % (auto) 1.3 %; Lymphocytes % (auto) 10.4 %; Mean Corpuscular Hemoglobin 26.2 pg (25.0-34.0); Mean Corpuscular Hgb Conc 33.6 g/dL (32.0-36.0); Mean Platelet Volume 12.1 fL (9.4-12.4); Monocytes # (auto) 0.79 K/uL (0.11-0.59); Monocytes % (auto) 5.5 %; Neutrophils # (auto) 11.59 K/uL (1.40-6.50); Neutrophils % (auto) 80.8 %; Platelet Count 218 K/uL (130-400); RDW Coefficient of Variation 14.6 % (11.5-14.5); RDW Standard Deviation 40.7 fL (36.4-46.3); Red Blood Count 5.04 M/uL (4.70-6.10); White Blood Count 14.36 K/ul (4.8-10.8)
[2023-07-01 08:48] LABS: Alanine Aminotransferase 49 U/L (7-52); Albumin Globulin Ratio 1.4 (0.9-2); Albumin Level 4.4 gm/dl (3.4-5.0); Alkaline Phosphatase 75 U/L (34-104); BUN Creatinine Ratio 9.2 (10-20); Blood Urea Nitrogen 6 mg/dl (6-23); Calcium 8.8 mg/dl (8.6-10.3); Carbon Dioxide 24 mmol/L (21-32); Chloride 99 mmol/L (98-107); Creatinine Clr Calc Pharmacy 212.5 ml/min; Est GFR (African American) > 150.0 ml/min; Est GFR (Non-African American) 138.1 ml/min; Globulin 3.1 gm/dl (2.5-4.0); Glucose 193 mg/dl (70-99(Fasting)); Total Protein 7.5 gm/dl (6.0-8.3)
[2023-07-01 08:52] LABS: Anion Gap 14 (3-11); Magnesium 2.3 mg/dl (1.7-2.4); Potassium 3.9 mmol/L (3.5-5.1); Sodium 137 mmol/L (136-145)
[2023-07-01 08:57] LABS: Aspartate Aminotransferase 35 U/L (13-39)
[2023-07-01] MEDS: LANTUS PER UNIT CHARGE SQ STA (09:26)
--- NOTE | 2023-07-01 11:48 | Hospitalist Progress Note ---
Date of Service July 01, 2023 Assessment & Plan (1) Perirectal abscess: Plan: Status post incision and drainage, postoperative day #1. Cultures remain pending. He remains on intravenous Zosyn and daptomycin. Appreciate general surgery consultation and recommendations. (2) Diabetes mellitus, new onset: Plan: This appears to be type I. He will be discharged on insulin therapy. Only time will tell if he can keep his glucose under control with appropriate diet, exercise, weight loss, and oral medications. He will follow-up with [facility] and they will have to manage this going forward. Lantus dosage uptitrated today, July 01. He will be on twice daily dosing, at breakfast and supper time. Plan Hopeful discharge to home tomorrow, July 02 Admission and Anticipated Discharge Date Admission Date: June 30, 2023 Subjective Alert and oriented. He is eating well and IV fluids are discontinued. Rectal abscess culture pending. He remains on intravenous Zosyn and daptomycin, day 2. We discussed what appears to be type 1 diabetes at length. Hemoglobin A1c is 10.3. Glucose 243. Lantus uptitrated today. Only time will tell if his diabetes can be managed with diet, exercise, weight loss, and oral medication and the insulin can be discontinued. He is a student at [employer] and will need to follow-up with [facility]. Review of Systems 2 Review of Systems: Constitutional-no fever or chills ENT-no blurred vision, no double vision, no epistaxis, no sore throat Respiratory-no cough, no wheezing, no shortness of breath Cardiac-no palpitations, no chest pain, no syncope GI-no nausea, vomiting, diarrhea, melena, hematochezia. Postoperative discomfort at rectal incision and drainage site -no urinary retention, no urinary incontinence, no dysuria, no hematuria Musculoskeletal-no joint pain, no muscle tenderness Skin-no bruising, no rashes, no pruritus Neuro-no isolated weakness, no paresthesia, no weakness Psych-no depression, no anxiety Physical Exam 2 Physical Exam: General-alert and oriented x3, no fever, no chills HEENT-head atraumatic and normocephalic, pupils equal and reactive to light, extraocular muscles intact Neck-no lymphadenopathy or thyromegaly, trachea midline Chest-clear to auscultation. No rales, wheezing or rhonchi Cardiac-regular rate and rhythm, normal S1 and S2 Abdomen-normal bowel sounds, nontender, no hepatosplenomegaly Extremities-no cyanosis, clubbing, or edema Neuro-cranial nerves II through XII intact, motor and sensory function within normal limits, strength symmetrical, no focal deficits Psych-normal affect, normal mood Results & Data Results & Data Vital Signs (Past 12 Hours) Vital Signs Temp Pulse Pulse Resp BP Pulse Ox O2 Del Method 07/01/23 09:00 Room Air 07/01/23 07:33 36.8 C 89 143/88 H 97 Room Air 07/01/23 07:00 99 H 07/01/23 03:13 37.3 C 98 H 16 138/81 96 Room Air 07/01/23 00:07 107 H Laboratory Results 07/01/23 06:35 07/01/23 07:42 PG Care Time/CCT Total # of Minutes Spent Total Time Spent with Patient: Total time spent is greater than 50% in coordination of care (as documented) at patient's floor/unit and/or counseling patient: Coding Level of Care Code 69607 SUB INP/OBS CARE 3/50MIN Diagnoses Perirectal abscess K61.1 Diabetes mellitus, new onset E11.9
--- NOTE | 2023-07-01 12:32 | Surgery Progress Note ---
Date of Service July 01, 2023 Assessment & Plan (1) Perirectal abscess: Plan: leave packing one more day, will remove tomorrow con't IV abx possible discharge tomorrow depending on glucose control Admission and Anticipated Discharge Date Admission Date: June 30, 2023 Subjective febrile overnight feels better this AM Review of Systems Constitutional: + fever and + chills; no anorexia Respiratory: no cough and no dyspnea Cardiovascular: no chest pain Gastrointestinal: no abdominal pain, no nausea and no vomiting Genitourinary: no dysuria Integumentary: no problem reported Neurologic: no localized weakness and no generalized weakness Psychiatric: no behavioral changes Hematologic / Lymphatic: no easy bleeding and no easy bruising Physical Exam Constitutional: WD/WN, vitals as above Respiratory: normal respiratory effort, lungs clear to auscultation Cardiovascular: RRR, no murmur, no edema Gastrointestinal (Abdomen): Inspection/Auscultation: abdomen normal to inspection and normal bowel sounds; abdomen not distended Percussion/Palpation: abdomen soft; abdomen nontender Musculoskeletal: Head/Neck/Chest: normocephalic and head atraumatic Skin: no rashes, warm and dry (packing in place) Results & Data Vital Signs (Past 12 Hours) Vital Signs Temp Pulse Pulse Resp BP BP Pulse Ox 07/01/23 11:47 36.9 C 94 H 16 160/109 H 155/103 H 96 07/01/23 09:00 07/01/23 07:33 36.8 C 89 143/88 H 97 07/01/23 07:00 99 H 07/01/23 03:13 37.3 C 98 H 16 138/81 96 O2 Del Method 07/01/23 11:47 Room Air 07/01/23 09:00 Room Air 07/01/23 07:33 Room Air 07/01/23 07:00 07/01/23 03:13 Room Air
[2023-07-01] MEDS: LANTUS PER UNIT CHARGE SQ SCH (20:43)
[2023-07-02 07:30] LABS: Basophils # (auto) 0.07 K/uL (0.00-0.20); Basophils % (auto) 0.6 %; Eosinophils # (auto) 0.38 K/uL (0.00-0.50); Eosinophils % (auto) 3.2 %; Hematocrit (blood only) 38.2 % (42.0-52.0); Hemoglobin 12.7 g/dl (14.0-18.0); Immature Granulocytes % (auto) 1.7 %; Lymphocytes # (auto) 1.43 K/uL (1.20-3.40); Lymphocytes % (auto) 11.9 %; Mean Corpuscular Hgb Conc 33.2 g/dL (32.0-36.0); Mean Corpuscular Volume 78.1 fL (80.0-100.0); Mean Platelet Volume 11.8 fL (9.4-12.4); Monocytes % (auto) 7.5 %; Neutrophils # (auto) 9.05 K/uL (1.40-6.50); Neutrophils % (auto) 75.1 %; Platelet Count 190 K/uL (130-400); RDW Coefficient of Variation 14.5 % (11.5-14.5); RDW Standard Deviation 41.1 fL (36.4-46.3); Red Blood Count 4.89 M/uL (4.70-6.10); White Blood Count 12.03 K/ul (4.8-10.8)
[2023-07-02 07:40] LABS: Anion Gap 10 (3-11); BUN Creatinine Ratio 17.1 (10-20); Blood Urea Nitrogen 12 mg/dl (6-23); Calcium 9.3 mg/dl (8.6-10.3); Carbon Dioxide 25 mmol/L (21-32); Chloride 100 mmol/L (98-107); Creatinine Clr Calc Pharmacy 181.7 ml/min; Est GFR (African American) > 150.0 ml/min; Glucose 203 mg/dl (70-99(Fasting)); Potassium 3.6 mmol/L (3.5-5.1); Sodium 135 mmol/L (136-145)
[2023-07-02] MEDS: oxyCODONE/ACETAMINOPHEN 5mg/325mg TAB PO PRN (07:53)
--- NOTE | 2023-07-02 12:30 | Discharge Summary ---
Date of Service July 02, 2023 Admission HPI Per Admitting Provider The patient is a 23-year-old male with no significant past medical history, who presents to the emergency department with acute onset of severe rectal pain, worsening over the past 2 days. He has had no previous occurrences of antibiotic or rectal pain. No family history of inflammatory bowel disease. There is a family history of his father and paternal grandfather both having diabetes mellitus. He himself has not had issues with diabetes in the past, however, his glucose was 317 upon admission this evening. Principal Diagnosis Perirectal abscess, new onset type 1 diabetes Discharge Exam General-alert and oriented x3, no fever, no chills HEENT-head atraumatic and normocephalic, pupils equal and reactive to light, extraocular muscles intact Neck-no lymphadenopathy or thyromegaly, trachea midline Chest-clear to auscultatio. No rales, wheezing or rhonchi Cardiac-regular rate and rhythm, normal S1 and S2 Abdomen-normal bowel sounds, nontender, no hepatosplenomegaly Extremities-no cyanosis, clubbing, or edema Neuro-cranial nerves II through XII intact, motor and sensory function within normal limits, strength symmetrical, no focal deficits Psych-normal affect, normal mood Discharge Data Allergies Allergy/AdvReac Type Severity Reaction Status Date / Time No Known Allergies Allergy Verified 06/30/23 02:28 Consultations 06/30/23 02:15 ED Decision to Admit Stat 06/30/23 06:54 Consult Hospitalist Stat Procedures Performed Operation Date: 06/30/23 07:00 Actual Procedures p Incision and Drainage Perirectal Abscess(Not Applicable) - Thony Kirkland MD Ordered Studies 06/29/23 22:53 CT pelvis w/IV con only Stat Hospital Course (1) Perirectal abscess: Status post incision and drainage, postoperative day #2. Cultures remain n ondiagnostic. Treated while hospitalized with Zosyn and daptomycin. Home on Augmentin. Appreciate general surgery consultation and recommendations. (2) Diabetes mellitus, new onset: This appears to be type I. He will be discharged on insulin therapy. Only time will tell if he can keep his glucose under control with appropriate diet, exercise, weight loss, and switch to oral medications. He will follow-up with [facility] or the resident's medical clinic and they will have to manage this going forward. Lantus dosage uptitrated on July 01. He will be on twice daily dosing, at breakfast and supper time. He was cautioned to let his eyes adjust to the lower glucose levels before he gets new eyeglasses if necessary. He should wait at least 1 month Plan Home today, July 02 Total Time Total Time Spent Total Time Spent (In Minutes): 45 minutes Discharge Plan Discharge Items Patient Disposition: Home - Self-Care Reason For Visit: RECTAL PAIN, HURTS TO SIT Discharge Diagnosis: Perirectal abscess, new onset type 1 diabetes Activity: Resume your previous activity Non-emergency contact: Primary Care Provider Call non-emergency contact if: you have any medication questions and your symptoms worsen Follow-up/Referrals: PCP,NO [Physician] - Diet: Carb Consistent or DM2 Addtl Attending Provider Instructions: Take antibiotic twice daily as directed for 10 more days. Take insulin twice daily, at breakfast and supper. Check glucose levels twice daily before each insulin injection. Keep a record and present the record to your physician when you have an appointment. Do not get new eyeglasses for at least 1 month. Wait for your eyes to adjust to the lower sugar levels. Pending Studies at Discharge: No Stand-Alone Forms: My [employer], Work/School Release, Smoking Cessation Medications and DC Order Prescriptions: New insulin glargine [Lantus Solostar U-100 Insulin] 100 unit/mL (3 mL) insulin pen 15 unit subcut BID Qty: 15 1RF amoxicillin-pot clavulanate 875-125 mg tablet 1 tab PO BID Qty: 20 0RF Discharge Orders: Discharge Order (Routine); Ordered 07/02/23 Ordered By: Fabio Varma Admission Data Admit Date/Time: 06/30/23 06:47 Attending Provider: Fabio Varma Admit Provider: Jeremiah Jeter Primary Care Provider: [facility] Other Providers: Thony Kirkland; Jeremiah Jeter Coding Level of Care Code 49682 INP/OBS DISCH >30 MIN Diagnoses Perirectal abscess K61.1 Diabetes mellitus, new onset E11.9
[2023-07-02] MEDS: MoRPHine SULFATE 4 MG/ML 1 ML CARP\\VIAL IV PRN (13:47)
--- NOTE | 2023-07-02 14:20 | Surgery Progress Note ---
Date of Service July 02, 2023 Assessment & Plan (1) Perirectal abscess: Plan: dry dressing daily and as needed, no packing needed 14 days of augmentin po at home appt my clinic next week discharge per medical team Admission and Anticipated Discharge Date Admission Date: June 30, 2023 Subjective feels better Review of Systems Constitutional: no fever and no chills Respiratory: no cough Cardiovascular: no chest pain Gastrointestinal: no abdominal pain Genitourinary: no dysuria Physical Exam Musculoskeletal: Spine: + buttock tenderness (packing removed, wound looks clean) Results & Data Vital Signs (Past 12 Hours) Vital Signs Temp Pulse Pulse Resp BP BP Pulse Ox 07/02/23 11:55 36.6 C 95 H 16 152/95 H 96 07/02/23 09:54 07/02/23 08:23 36.7 C 100 H 18 144/85 H 98 07/02/23 07:30 88 07/02/23 03:12 36.9 C 94 H 16 134/77 95 O2 Del Method 07/02/23 11:55 Room Air 07/02/23 09:54 Room Air 07/02/23 08:23 Room Air 07/02/23 07:30 07/02/23 03:12 Room Air
== END 2023-07-02 16:06 | disposition home or self-care (01) | DRG 395 ==
LOC: SUATTDRO → ED 21:14 → EDUNIT# 21:14 → SURCTR 06-30 08:35 → ASU 06-30 08:35 → SURCTR 06-30 08:54 → 2N 06-30 13:03 → SUATTDRO 06-30 13:03

== ENCOUNTER 2023-07-07 19:56 | Inpatient (IN) ==
--- NOTE | 2023-07-07 21:10 | Emergency Department Note ---
ED Provider Note History of Present Illness Chief Complaint: Skin Problem Stated Complaint: SORE ON BOTTOM Time Seen by Provider: 07/07/23 21:09 This is a 23-year-old male with a recent history of a perirectal abscess drained in the OR 7 days ago, was admitted for 2 more days, and subsequently discharged on Augmentin, accompanied by his mother who returns to the emergency department with ongoing pain in his rectal area. He states the pain is about the same as it was after it was drained, has not worsened but not significantly improved. It has been draining a little bit of blood, no pus. He has not followed up with general surgery on an outpatient basis since being discharged. For pain, he has been taking 200 mg ibuprofen per day. He states that after he takes this medication he does not have any pain for about 12 hours but then the pain returns. He is not taking any other pain medication. Is tolerating the Augmentin as prescribed. Was able to have a normal bowel movement today but did have some pain with it. He denies any abdominal pain, nausea, vomiting, fever, chills. Home Medications Medication Instructions Recorded Confirmed Type amoxicillin 875 mg-potassium 1 tab PO BID #20 tabs 07/02/23 Rx clavulanate 125 mg tablet insulin glargine 100 unit/mL (3 15 unit (0.15 mL) subcut BID #15 mL 07/02/23 Rx mL) subcutaneous pen (Lantus Solostar U-100 Insulin) Allergies Allergy/AdvReac Type Severity Reaction Status Date / Time No Known Allergies Allergy Verified 06/30/23 02:28 Past Med/Surg History Social History Smoking Status: Never smoker Tobacco Type: Cigarettes Second Hand Exposure: No; Do You Dip or Chew Tobacco: No; Hx Alcohol Use: No Hx Substance Use: No Preferred Language: [place] Communication Ability: Effective Transition Mgr Rn Required: No Beliefs That Will Affect Care: None Current Living Situation: Other Current Living Situation Comment: student at [employer] [place] Feels Safe at Home: Yes Assistive Devices: None Physical Exam Vital Signs Vital Signs - 24 hr 07/07/23 20:07 Temperature 97.7 F Temperature Source Temporal Artery Scan Pulse Rate 91 H Respiratory Rate 18 Respiratory Effort / Characteristics Non-Labored Spontaneous Respiratory Depth Normal Respiratory Pattern Regular Blood Pressure 165/106 H Blood Pressure Mean 125 Pulse Oximetry 96 Oxygen Delivery Method Room Air Sepsis Recent Fever Within 48 Hours No Sepsis New/Unexplained Change in Mental Status N/A Sepsis Action Taken by Nursing No Action Required CONSTITUTIONAL: Well developed, well nourished, in no acute distress laying supine on the stretcher EYES: conjunctivae normal, extraocular muscles intact. NECK: Full active range of motion. RESPIRATORY: Breathing unlabored and symmetric. ABDOMEN: Normal bowel sounds. Soft, nontender, no peritonitis. No masses. RECTAL: Female RN clothing sorter present. Surgical incision present at the 5 o'clock position. No significant edema or erythema. Minimal tenderness over the surgical incision with no active discharge or drainage. There is significant tenderness to the left side of the rectum with induration. No significant fullness. MUSCULOSKELETAL: Moves all extremities at all joints without pain or difficulty. SKIN: [place], warm, dry. NEUROLOGIC: Awake, alert, oriented. No focal deficits. Course Administered Medications Discontinued Medications Sodium Chloride (Nss) 1,000 mls @ 999 mls/hr IV .Q1H1M ONE Stop: 07/07/23 22:49 Last Admin: 07/07/23 22:58 Dose: 999 mls/hr Documented By: Medical Decision Making Differential Diagnosis Postoperative pain, perianal abscess, perirectal abscess, fistula, sepsis, antibiotic failure, among other pathology Medical Records Attestation: I reviewed the patient's medical records. (Reviewed general surgery procedure note, small amount of pus was expressed after incision) Laboratory Data 07/07/23 21:43 07/07/23 21:43 MDM Narrative This is a 23-year-old male who presents to the emergency department with ongoing rectal pain. He underwent perirectal abscess drainage 7 days ago in the OR. See above for further details. Patient well-appearing in no acute distress. Afebrile. Heart rate in the 90s. External inspection of his rectal region is fairly benign however he is significantly tender along the left rectal wall on digital examination. Due to ongoing pain with continued discomfort on rectal exam, labs were repeated and CT of the pelvis with contrast was ordered. Patient with difficult vascular access so IV team was consulted. Patient will be signed out to my colleague Rolan Downs PA-C at time of shift change pending blood work and CT of the pelvis with contrast. Please refer to his documentation for disposition. Discharge Plan Visit Data Chief Complaint: Skin Problem Stated Complaint: SORE ON BOTTOM ED Provider: Javed Lopez ED Midlevel Provider: Murray Camejo Forms Stand Alone Forms: [facility] Prescriptions Prescriptions: No Action insulin glargine [Lantus Solostar U-100 Insulin] 100 unit/mL (3 mL) insulin pen 15 unit subcut BID Qty: 15 1RF amoxicillin-pot clavulanate 875-125 mg tablet 1 tab PO BID Qty: 20 0RF Referrals Referrals: [place],[facility] [Primary Care Provider] -
[2023-07-07] MEDS: SODIUM CHLORIDE 0.9% 1,000 ML IV ONE (22:58)
[2023-07-07 23:07] LABS: Basophils # (auto) 0.08 K/uL (0.00-0.20); Basophils % (auto) 0.7 %; Eosinophils % (auto) 3.4 %; Hematocrit (blood only) 40.9 % (42.0-52.0); Hemoglobin 13.8 g/dl (14.0-18.0); Immature Granulocytes # (auto) 0.39 K/uL (0.01-0.20); Immature Granulocytes % (auto) 3.4 %; Lymphocytes # (auto) 2.04 K/uL (1.20-3.40); Lymphocytes % (auto) 17.6 %; Mean Corpuscular Hemoglobin 26.5 pg (25.0-34.0); Mean Corpuscular Hgb Conc 33.7 g/dL (32.0-36.0); Mean Corpuscular Volume 78.5 fL (80.0-100.0); Mean Platelet Volume 10.7 fL (9.4-12.4); Monocytes # (auto) 0.77 K/uL (0.11-0.59); Monocytes % (auto) 6.6 %; Neutrophils # (auto) 7.94 K/uL (1.40-6.50); Neutrophils % (auto) 68.3 %; Platelet Count 337 K/uL (130-400); RDW Coefficient of Variation 14.3 % (11.5-14.5); RDW Standard Deviation 41.1 fL (36.4-46.3); Red Blood Count 5.21 M/uL (4.70-6.10); White Blood Count 11.62 K/ul (4.8-10.8)
--- NOTE | 2023-07-07 23:15 | Emergency Department Note ---
ED Visit Note Patient care was assumed from my colleague, Murray Camejo PA-C, at the time of shift change. Please see Mr. Camejo's dictation for full history of present illness and emergency department course outside of this note. In short the patient was evaluated about a week ago and this facility for perirectal abscess. He underwent incision and drainage in the OR and was discharged on antibiotics. The patient was also found to be diabetic and is taking his medications as prescribed. At the time of shift change the patient was continuing with perirectal pain and there is clinical concern for return of abscess. CT scan was pending. CT reading is as below: Exam(s): CT PELVIS With Contrast IV Amt: 86 ML OPTIRAY 320 EXAM: CT Pelvis With Intravenous Contrast CLINICAL HISTORY: Reason for exam: perirectal abscess, drained 7 days ago, still pain. TECHNIQUE: Axial computed tomography images of the pelvis with intravenous contrast. Automated exposure control was utilized for the study. A dose lowering technique was utilized adhering to the principles of ALARA. CONTRAST: Patient received 86 ML OPTIRAY 320 of IV contrast COMPARISON: No relevant prior studies available. FINDINGS: Bowel: Unremarkable. No obstruction. No mucosal thickening. Appendix: No findings to suggest acute appendicitis. Intraperitoneal space: Unremarkable. No free air. No significant fluid collection. Bladder: Unremarkable. No mass. Reproductive: Unremarkable as visualized. Bones/joints: No acute fracture. No dislocation. Soft tissues: Large left-sided perirectal abscess, measures 6.1 x 3.6 cm. This extends inferiorly and is contiguous with a perianal abscess, which measures approximately 2.3 x 3.3 cm. Surgical evaluation recommended. Vasculature: Unremarkable. No lower abdominal aortic aneurysm. Lymph nodes: Unremarkable. No enlarged lymph nodes. IMPRESSION: Large left-sided perirectal abscess, measures 6.1 x 3.6 cm. This extends inferiorly and is contiguous with a perianal abscess, which measures approximately 2.3 x 3.3 cm. Surgical evaluation recommended. Electronically signed by: Daren Sesay MD 07/08/23 00:38 AM Patient was updated regarding his findings. He appears to have either reaccumulated or persistent abscess on CT imaging. Patient was given Zosyn and morphine. Surgical team was contacted and did evaluate the patient here in the department. Please see their dictation for further patient course, plan, and disposition. .
[2023-07-07 23:38] LABS: Albumin Globulin Ratio 1.8 (0.9-2); Albumin Level 5.1 gm/dl (3.4-5.0); BUN Creatinine Ratio 9.3 (10-20); Bilirubin,Total 0.3 mg/dl (0.2-1.0); Creatinine Clr Calc Pharmacy 84.8 ml/min; Est GFR (African American) 75.5 ml/min; Est GFR (Non-African American) 65.1 ml/min; Globulin 2.9 gm/dl (2.5-4.0)
[2023-07-07] MEDS: ACETAMINOPHEN 1,000 MG/100 ML VIAL IV STA (23:38)
[2023-07-07] MEDS: OPTIRAY 320 500ml IV ONE (23:54)
[2023-07-07 23:56] LABS: Potassium 4.1 mmol/L (3.5-5.1)
[2023-07-08] MEDS: MoRPHine SULFATE 4 MG/ML 1 ML CARP\\VIAL IV PRN (00:08)
[2023-07-08] MEDS: PIPERACILLIN/TAZOBACTAM 4.5 GM/100 ML BAG IV ONE (00:08)
[2023-07-08] MEDS: ONDANSETRON INJ 2 MG/ML 2 ML VIAL IV STA (00:08)
--- NOTE | 2023-07-08 00:39 | CT Scan Report ---
Exam(s): CT PELVIS With Contrast IV Amt: 86 ML OPTIRAY 320 EXAM: CT Pelvis With Intravenous Contrast CLINICAL HISTORY: Reason for exam: perirectal abscess, drained 7 days ago, still pain. TECHNIQUE: Axial computed tomography images of the pelvis with intravenous contrast. Automated exposure control was utilized for the study. A dose lowering technique was utilized adhering to the principles of ALARA. CONTRAST: Patient received 86 ML OPTIRAY 320 of IV contrast COMPARISON: No relevant prior studies available. FINDINGS: Bowel: Unremarkable. No obstruction. No mucosal thickening. Appendix: No findings to suggest acute appendicitis. Intraperitoneal space: Unremarkable. No free air. No significant fluid collection. Bladder: Unremarkable. No mass. Reproductive: Unremarkable as visualized. Bones/joints: No acute fracture. No dislocation. Soft tissues: Large left-sided perirectal abscess, measures 6.1 x 3.6 cm. This extends inferiorly and is contiguous with a perianal abscess, which measures approximately 2.3 x 3.3 cm. Surgical evaluation recommended. Vasculature: Unremarkable. No lower abdominal aortic aneurysm. Lymph nodes: Unremarkable. No enlarged lymph nodes. IMPRESSION: Large left-sided perirectal abscess, measures 6.1 x 3.6 cm. This extends inferiorly and is contiguous with a perianal abscess, which measures approximately 2.3 x 3.3 cm. Surgical evaluation recommended. Electronically signed by: Daren Sesay MD 07/08/23 00:38 AM
--- NOTE | 2023-07-08 01:23 | History & Physical Report ---
Date of Service July 08, 2023 Assessment & Plan (1) Perirectal abscess: Plan: Due to the patient's clinical presentation, along with his findings on imaging he will be admitted to the hospital proceeding as follows: Analgesia will be provided Antiemetics will be provided IV fluids to be provided for hydration Antibiotics in form of Zosyn has been initiated and these will continue N.p.o. status will be implemented Due to the findings on CT scan the patient will require incision and drainage of his perirectal abscess. This will be planned for 07/08/2023. At the present time the patient is hemodynamically stablenormotensive without tachycardia or fever. As the patient is stable and nontoxic-appearing there is not appear to be the need to perform this procedure emergently this evening but can be performed on a semielective basis on 07/08/2023. Due to the patient's history of insulin-dependent diabetes I have requested the hospitalist to assist with the management of this condition. I personally spoke with the [facility] physician group hospitalist who will order appropriate insulin coverage/dosages along with Accu-Cheks. SCDs were used for DVT prevention, no chemical means due to planned surgical intervention He will be a level 1 full code I History of Present Illness Chief Complaint: Perirectal abscess Primary Care Provider: [facility] This is a 23-year-old male who presented to the emergency department secondary to rectal pain. The patient has had a Perirectal abscess drained on 06/30/[address] Kirkland of [facility] surgery. The patient was treated with antibiotics in form of Zosyn and daptomycin while in the hospital and he was discharged on postop day #2. He was discharged on oral Augmentin. The patient presented to the emergency department today due to worsening rectal pain. He notes that the pain is located just to the left of his anus. He denies any fevers, shakes, or chills. He does note that the pain is worse when he sits down and hurts slightly when he moves his bowels. He does not report any other mitigating factors. He notes that he has not had any pus or drainage from this area. Because of his history of previously drained perirectal abscess he presented to the emergency department. It is nowhere the mention that this patient is an insulin-dependent diabetic. The patient notes that he takes 15 units of Lantus insulin twice daily. His most recent dose of this medication was at approximately 8:00 PM on 07/07/2023. The patient notes that he is compliant with his insulin and his blood glucose levels usually run between 101 130 Since arrival to the hospital this patient has had labs and imaging which) reviewed. CBC revealed white blood cell count was elevated 11.6. Hemoglobin and hematocrit were 13.8 and 40.9. Platelet count is normal. Chemistry profile showed sodium and potassium along with the BUN were within normal range. Creatinine had a slight elevation at 1.5. A CT scan of the abdomen and pelvis was performed that showed the patient had a large left-sided perirectal abscess measuring 6.1 x 3.6 cm. This was felt to extend inferiorly and is in contiguous connection with a perianal abscess measuring approximately 2.3 x 3.3 cm. At the time of my interview he was resting comfortably in bed and he was in no distress. Concerning past medical history the patient notes he is a diabetic. Concerning past surgical history he has had a previous incision and drainage of a perirectal abscess as noted above Concerning allergies he denies any medicine allergies Concerning social history he does not smoke Concerning family history the patient says his grandfather suffers from d [place]. Allergies Allergy/AdvReac Type Severity Reaction Status Date / Time No Known Allergies Allergy Verified 07/08/23 00:57 Home Medications Medication Instructions Recorded Confirmed Type amoxicillin 875 mg-potassium 1 tab PO BID #20 tabs 07/02/23 07/08/23 Rx clavulanate 125 mg tablet insulin glargine 100 unit/mL (3 15 unit (0.15 mL) subcut BID #15 mL 07/02/23 07/08/23 Rx mL) subcutaneous pen (Lantus Solostar U-100 Insulin) Past Med/Surg History Social History Smoking Status: Unknown if ever smoked Tobacco Type: Cigarettes Second Hand Exposure: No; Do You Dip or Chew Tobacco: No; Hx Alcohol Use: No Hx Substance Use: No Preferred Language: Dominican Communication Ability: Effective Refrigeration Mechanic Helper Required: No Beliefs That Will Affect Care: None Current Living Situation: Family Current Living Situation Comment: student at [employer] Feels Safe at Home: Yes Assistive Devices: None Review of Systems Constitutional: no fever and no chills Eyes: + corrective lenses Ear, Nose, Mouth, Throat: no hearing loss Respiratory: no cough and no dyspnea Cardiovascular: no chest pain Gastrointestinal: no abdominal pain, no nausea and no vomiting Musculoskeletal: no back pain Integumentary: no rash Neurologic: no localized weakness Physical Exam Physical Exam: With a nurse dip guider stoves present the patient's rectum was examined. To the left of the anus at approximately the 9 o'clock position the patient had an area of induration/fluctuance. There is a small incision from a previous incision and drainage procedure. There is no pus draining at the time of my exam. There is no crepitus noted in the soft tissue. There is a small amount of surrounding erythema. The area was painful to palpation. Constitutional: WD/WN, vitals as above Eyes: Wears glasses ENMT: Ears: no hearing impairment and no external ear abnormality Mouth: no oropharynx abnormality Neck: trachea midline Respiratory: normal respiratory effort; no respiratory distress and no labored breathing Cardiovascular: Rate/Rhythm: regular rate and regular rhythm Gastrointestinal (Abdomen): Abdomen is soft and nondistended. There is no pain with palpation Musculoskeletal: No calf tenderness Skin: no rashes Neurologic: moves all extremities Psychiatric: A+Ox3, euthymic affect Results & Data Results & Data Vital Signs (Past 12 Hours) Vital Signs Temp Pulse Pulse Resp BP BP Pulse Ox 07/08/23 01:09 68 16 132/82 94 07/08/23 00:08 74 19 154/96 H 97 07/07/23 20:07 36.5 C 91 H 18 165/106 H 96 O2 Del Method 07/08/23 01:09 Room Air 07/08/23 00:08 Room Air 07/07/23 20:07 Room Air Supervising Physician Co-Signing Physician Notes I personally saw and evaluated the patient with Armaan Rahman PA-C and agree with the assessment and plan. 23 yo male one week s/p I&D of shivam-rectal abscess, now with recurrent symptoms and abscess His CT images and results were personally viewed and interpreted by myself He has a large area of induration and what looks like organized fluid along the left shivam-rectal tissues Will admit the patient to the surgical service, start ABX and keep NPO I did discuss the case with Dr. Kirkland who performed the initial drainage and he will be assuming care of the patient No plans for I&D today, so continue ABX at this point PG Care Time/CCT Total # of Minutes Spent Total Time Spent with Patient: Total time spent is greater than 50% in coordination of care (as documented) at patient's floor/unit and/or counseling patient: Coding Level of Care Code 05894 INT INP/OBS CARE 3/75MIN Diagnoses Perirectal abscess K61.1
--- NOTE | 2023-07-08 01:46 | Hospitalist Consultation ---
Date of Consultation July 08, 2023 Assessment & Plan (1) Diabetes mellitus: - Diagnosed last admission - Hemoglobin a1c= 10.3 06/2023 - Plan to continue home insulin regimen. 15units Lantus BID and will add meal time coverage as needed with SSI - Plan for carb consistent diet after NPO for surgery (2) Perirectal abscess: - Plan for I&D - On Zosyn - management per surgery Supervising Physician Co-Signing Physician Notes Attending addendum: I have physically seen this patient, have supervised the medical residents activities, and agree with the H&P unless as otherwise noted. Assessment and Plan: Diabetes mellitus type 1- Recent diagnosis last week at previous admission On Lantus 15 units subcu twice daily Hold a.m. dose for surgery, and then resume dosing postsurgery Placed on Accu-Cheks with NovoLog SSI Perirectal abscess- Admitted to the general surgery service for I&D on Continue Zosyn History of Present Illness Reason for Consultation: Management DM1 Requesting Physician: Armaan Borja Pa-C History of Present Illness 23 year old male with a past medical history of DM1 admitted for repeat I&D for rectal abscess. Was recently admitted and had perirectal abscess drained 06/30. Was discharged on Augmentin. Presents to ED with worsening rectal pain. CT demonstrated left-sided perirectal abscess measuring 6.1 x 3.6 cm and plan is for repeat I&D . Consulted for diabetes management. Resting comfortably when I saw him, no complaints. Allergies Allergy/AdvReac Type Severity Reaction Status Date / Time No Known Allergies Allergy Verified 07/08/23 00:57 Home Medications Medication Instructions Recorded Confirmed Type amoxicillin 875 mg-potassium 1 tab PO BID #20 tabs 07/02/23 07/08/23 Rx clavulanate 125 mg tablet insulin glargine 100 unit/mL (3 15 unit (0.15 mL) subcut BID #15 mL 07/02/23 07/08/23 Rx mL) subcutaneous pen (Lantus Solostar U-100 Insulin) Patient History Social History Smoking Status: Unknown if ever smoked Tobacco Type: Cigarettes Second Hand Exposure: No; Do You Dip or Chew Tobacco: No; Hx Alcohol Use: No Hx Substance Use: No Preferred Language: Welsh Communication Ability: Effective Training And Development Specialist Required: No Beliefs That Will Affect Care: None Current Living Situation: Family Current Living Situation Comment: student at [employer] Feels Safe at Home: Yes Assistive Devices: None Review of Systems Review of Systems: As per above Physical Exam Physical Exam: Constitutional: well-appearing, no acute distress HEENT: NCAT, no conjunctival injection CV: regular rhythm, no murmur appreciated, extremities well-perfused, no LE edema Resp: CTABL, no wheezes/rales/rhonchi appreciated, no increased work of breathing GI: soft, nondistended, nontender, BS normoactive MSK: no gross deformities appreciated Skin: warm, dry, no rash appreciated Neuro: alert, oriented, no focal neurologic deficit appreciated Results & Data Results & Data Vital Signs (Past 12 Hours) Vital Signs Temp Pulse Pulse Resp BP BP Pulse Ox 07/08/23 01:09 68 16 132/82 94 07/08/23 00:08 74 19 154/96 H 97 07/07/23 20:07 36.5 C 91 H 18 165/106 H 96 O2 Del Method 07/08/23 01:09 Room Air 07/08/23 00:08 Room Air 07/07/23 20:07 Room Air Resident Activity Tracking Resident Involvement: Resident Care Provided Care Provided: Adult Hospital Medicine
[2023-07-08] MEDS ORDERED: ACETAMINOPHEN 1,000 MG/100 ML VIAL IV PRN (03:18)
[2023-07-08] MEDS ORDERED: CARBOHYDRATES FOR HYPOGLYCEMIA PO PRN (03:18)
[2023-07-08] MEDS ORDERED: GLUCOSE 10 TAB/TUBE PO PRN (03:18)
[2023-07-08] MEDS ORDERED: GLUCOSE 40% GEL 15 GM TUBE PO PRN (03:18)
[2023-07-08] MEDS ORDERED: ONDANSETRON INJ 2 MG/ML 2 ML VIAL IV PRN (03:18)
[2023-07-08] MEDS ORDERED: MoRPHine SULFATE 4 MG/ML 1 ML CARP\\VIAL IV PRN (03:18)
[2023-07-08] MEDS ORDERED: DEXTROSE 50% 50 ML SYRINGE IV PRN (03:18)
[2023-07-08] MEDS ORDERED: GLUCAGON FOR INJ 1 MG VIAL SQ PRN (03:18)
[2023-07-08] MEDS ORDERED: Nursing to Pharmacy Communication SCH (04:00)
[2023-07-08] MEDS: SODIUM CHLORIDE 0.9% 1,000 ML IV SCH (04:07)
[2023-07-08] MEDS: PIPERACILLIN/TAZOBACTAM 4.5 GM in DEXTROSE 5% MINI-B 100 ML IV SCH (06:06)
[2023-07-08] MEDS: INSULIN ASPART PER UNIT CHARGE SC SCH ×2 (06:11→17:49)
[2023-07-08 07:16] LABS: Basophils # (auto) 0.07 K/uL (0.00-0.20); Basophils % (auto) 0.7 %; Eosinophils % (auto) 3.9 %; Hematocrit (blood only) 36.8 % (42.0-52.0); Hemoglobin 12.1 g/dl (14.0-18.0); Immature Granulocytes # (auto) 0.38 K/uL (0.01-0.20); Immature Granulocytes % (auto) 3.7 %; Lymphocytes # (auto) 1.84 K/uL (1.20-3.40); Mean Corpuscular Hemoglobin 25.9 pg (25.0-34.0); Mean Corpuscular Hgb Conc 32.9 g/dL (32.0-36.0); Mean Corpuscular Volume 78.6 fL (80.0-100.0); Mean Platelet Volume 11.1 fL (9.4-12.4); Monocytes # (auto) 0.84 K/uL (0.11-0.59); Monocytes % (auto) 8.2 %; Neutrophils # (auto) 6.68 K/uL (1.40-6.50); Neutrophils % (auto) 65.5 %; Platelet Count 296 K/uL (130-400); RDW Coefficient of Variation 14.4 % (11.5-14.5); RDW Standard Deviation 41.1 fL (36.4-46.3); Red Blood Count 4.68 M/uL (4.70-6.10); White Blood Count 10.21 K/ul (4.8-10.8)
[2023-07-08 07:32] LABS: Anion Gap 9 (3-11); BUN Creatinine Ratio 13.2 (10-20); Blood Urea Nitrogen 12 mg/dl (6-23); Carbon Dioxide 23 mmol/L (21-32); Chloride 106 mmol/L (98-107); Creatinine Clr Calc Pharmacy 139.8 ml/min; Est GFR (African American) 138.2 ml/min; Est GFR (Non-African American) 119.2 ml/min; Glucose 129 mg/dl (70-99(Fasting)); Sodium 138 mmol/L (136-145)
[2023-07-08] MEDS: LANTUS PER UNIT CHARGE SQ SCH (08:34)
[2023-07-08 09:15] LABS: Albumin Level 4.4 gm/dl (3.4-5.0); Bilirubin,Total 0.4 mg/dl (0.2-1.0); Total Protein 7.1 gm/dl (6.0-8.3)
--- NOTE | 2023-07-08 16:33 | Hospitalist Progress Note ---
Date of Service July 08, 2023 Assessment & Plan (1) Perirectal abscess: Plan: -S/p I&D with Dr. Kirkland 06/30/2023 - CT pelvis: large left-sided perirectal abscess, measures 6.1 x 3.6 cm contiguous with a perianal abscess, approximately 2.3 x 3.3 cm. - original plan was for OR today, however this has been canceled by surgery - antibiotics DVT prophylaxis and pain control per primary (2) Diabetes mellitus: Plan: new diagnosis last admission, with A1c greater than 10 patient reports good control at home in the last week, has not seen a provider yet for this Continue Lantus 15 units BID (home regimen) Sliding scare mealtime coverage --Goal BSG Range: Low 110mg/dL, High 140mg/dL --Correction Factor: 25mg/dL/unit --Carbohydrate ratio = 9 g/unit --BSGs ACHS if eating, q6h if npo Plan dispo: Continued inpatient stay, medically stable Admission and Anticipated Discharge Date Admission Date: July 08, 2023 Supervising Physician Co-Signing Physician Notes Attending Attestation - Chart reviewed, care plan d/w EDMOND Noel. I agree w/ the montanez components of her documentation. Quincy Briscoe MD Subjective patient seen resting in bed. States that his pain is well-controlled at this time. Denies fevers or chills. Is currently n.p.o. with hopeful OR today states that his blood sugars have been running between 100 -200 since discharge from the hospital. Denies any lower then 80 or any symptoms of hypoglycemia at home Physical Exam Physical Exam: General: NAD, VS as above Resp: normal respiratory effort, lungs clear to auscultation CV: RRR, no murmur, Extremities: Moves all extremities, no edema Results & Data Results & Data Vital Signs (Past 12 Hours) Vital Signs Temp Pulse Resp BP Pulse Ox O2 Del Method 07/08/23 15:51 36.8 C 66 16 132/75 96 Room Air 07/08/23 07:10 36.7 C 64 16 125/73 97 Room Air PG Care Time/CCT Total # of Minutes Spent Total Time Spent with Patient: Total time spent is greater than 50% in coordination of care (as documented) at patient's floor/unit and/or counseling patient: Coding Level of Care Code None Diagnoses Perirectal abscess K61.1 Diabetes mellitus E11.9
--- NOTE | 2023-07-08 20:57 | Billing Data ---
Date of Service July 08, 2023 Coding Level of Care Code 49578 IN/OBS CONSULT LVL 3,45M
[2023-07-09] MEDS ORDERED: Nursing to Pharmacy Communication SCH ×2 (02:00→15:15)
[2023-07-09] MEDS: INSULIN ASPART PER UNIT CHARGE SC SCH (06:27)
[2023-07-09 06:30] LABS: Basophils # (auto) 0.05 K/uL (0.00-0.20); Basophils % (auto) 0.6 %; Eosinophils # (auto) 0.28 K/uL (0.00-0.50); Eosinophils % (auto) 3.5 %; Hematocrit (blood only) 38.4 % (42.0-52.0); Hemoglobin 12.2 g/dl (14.0-18.0); Immature Granulocytes # (auto) 0.17 K/uL (0.01-0.20); Immature Granulocytes % (auto) 2.1 %; Lymphocytes # (auto) 1.32 K/uL (1.20-3.40); Lymphocytes % (auto) 16.4 %; Mean Corpuscular Hemoglobin 25.4 pg (25.0-34.0); Mean Corpuscular Hgb Conc 31.8 g/dL (32.0-36.0); Mean Platelet Volume 11.2 fL (9.4-12.4); Monocytes # (auto) 0.66 K/uL (0.11-0.59); Monocytes % (auto) 8.2 %; Neutrophils # (auto) 5.58 K/uL (1.40-6.50); Neutrophils % (auto) 69.2 %; Platelet Count 281 K/uL (130-400); RDW Coefficient of Variation 14.2 % (11.5-14.5); White Blood Count 8.06 K/ul (4.8-10.8)
[2023-07-09 07:50] LABS: Anion Gap 9 (3-11); BUN Creatinine Ratio 9.3 (10-20); Blood Urea Nitrogen 7 mg/dl (6-23); Calcium 8.9 mg/dl (8.6-10.3); Carbon Dioxide 26 mmol/L (21-32); Chloride 105 mmol/L (98-107); Creatinine Clr Calc Pharmacy 169.6 ml/min; Est GFR (African American) > 150.0 ml/min; Est GFR (Non-African American) 130.2 ml/min; Glucose 114 mg/dl (70-99(Fasting)); Potassium 3.5 mmol/L (3.5-5.1); Sodium 140 mmol/L (136-145)
--- NOTE | 2023-07-09 08:21 | Surgery Progress Note ---
Date of Service July 09, 2023 Assessment & Plan (1) Perirectal abscess: Plan: ? recurrent or residual (2) Diabetes mellitus: Plan Recurrent vs residual large perirectal abscess afebrile, vss no pain Plan: Reaching out to IR about possibly IR drainage vs need for repeat I&D in OR this afternoon keep npo pain management as needed IV abx Addendum: Discussed with Mj Denise PA-C with IR, would recommend transrectal ultrasound drainage. Will need transferred to tertiary center for this procedure. Discussed with patient recommendation for transfer for IR procedure given size of abscess and likely residual from initial admission last week and likely will not completely resolve with IV antibiotics alone. Patient agreed with transfer. [place] [facility] Dr. Coughlin with colorectal surgery accepted patient. Awaiting for bed. continue current management. Discussed with Dr. Kirkland who agrees with above. Admission and Anticipated Discharge Date Admission Date: July 08, 2023 Subjective feeling better, no pain today no fevers or chills no rectal bleeding no nausea or vomiting Physical Exam Constitutional: WD/WN, vitals as above cooperative and comfortable; no acut e distress and not ill appearing Respiratory: normal respiratory effort; no respiratory distress Skin: no rashes, warm and dry Psychiatric: Orientation: alert and oriented x 3 Results & Data Vital Signs (Past 12 Hours) Vital Signs Temp Pulse Resp BP Pulse Ox O2 Del Method 07/09/23 07:52 36.6 C 76 16 138/79 97 Room Air 07/08/23 20:51 36.5 C 72 16 118/73 97 Room Air Laboratory Results 07/09/23 07/09/23 07/08/23 Range/Units 05:54 05:51 20:32 WBC 8.06 (4.8-10.8) K/ul RBC 4.80 (4.70-6.10) M/uL Hgb 12.2 L (14.0-18.0) g/dl Hct 38.4 L (42.0-52.0) % MCV 80.0 (80.0-100.0) fL MCH 25.4 (25.0-34.0) pg MCHC 31.8 L (32.0-36.0) g/dL RDW Std Deviation 41.0 (36.4-46.3) fL RDW Coeff of Leda 14.2 (11.5-14.5) % Plt Count 281 (130-400) K/uL MPV 11.2 (9.4-12.4) fL Immature Gran % (Auto) 2.1 % Neut % (Auto) 69.2 % Lymph % (Auto) 16.4 % [place] % (Auto) 8.2 % Eos % (Auto) 3.5 % Baso % (Auto) 0.6 % Neut # (Auto) 5.58 (1.40-6.50) K/uL Lymph # (Auto) 1.32 (1.20-3.40) K/uL [place] # (Auto) 0.66 H (0.11-0.59) K/uL Eos # (Auto) 0.28 (0.00-0.50) K/uL Baso # (Auto) 0.05 (0.00-0.20) K/uL Immature Gran # (Auto) 0.17 (0.01-0.20) K/uL Sodium 140 (136-145) mmol/L Potassium 3.5 (3.5-5.1) mmol/L Chloride 105 (98-107) mmol/L Carbon Dioxide 26 (21-32) mmol/L Anion Gap 9 (3-11) BUN 7 (6-23) mg/dl Creatinine 0.75 (0.6-1.4) mg/dl Est Cr Clr Drug Dosing 169.6 ml/min Est GFR ( Amer) > 150.0 ml/min Est GFR (Non-Af Amer) 130.2 ml/min BUN/Creatinine Ratio 9.3 L (10-20) Glucose 114 H (70-99(Fasting)) mg/dl POC Glucose 113 H 93 (70-99) mg/dl Calcium 8.9 (8.6-10.3) mg/dl Total Bilirubin (0.2-1.0) mg/dl Direct Bilirubin (0-0.2) mg/dl AST (13-39) U/L ALT (7-52) U/L Alkaline Phosphatase (34-104) U/L Total Protein (6.0-8.3) gm/dl Albumin (3.4-5.0) gm/dl 07/08/23 07/08/23 07/08/23 Range/Units 16:49 11:55 07:52 WBC (4.8-10.8) K/ul RBC (4.70-6.10) M/uL Hgb (14.0-18.0) g/dl Hct (42.0-52.0) % MCV (80.0-100.0) fL MCH (25.0-34.0) pg MCHC (32.0-36.0) g/dL RDW Std Deviation (36.4-46.3) fL RDW Coeff of Leda (11.5-14.5) % Plt Count (130-400) K/uL MPV (9.4-12.4) fL Immature Gran % (Auto) % Neut % (Auto) % Lymph % (Auto) % [place] % (Auto) % Eos % (Auto) % Baso % (Auto) % Neut # (Auto) (1.40-6.50) K/uL Lymph # (Auto) (1.20-3.40) K/uL [place] # (Auto) (0.11-0.59) K/uL Eos # (Auto) (0.00-0.50) K/uL Baso # (Auto) (0.00-0.20) K/uL Immature Gran # (Auto) (0.01-0.20) K/uL Sodium (136-145) mmol/L Potassium 4.0 (3.5-5.1) mmol/L Chloride (98-107) mmol/L Carbon Dioxide (21-32) mmol/L Anion Gap (3-11) BUN (6-23) mg/dl Creatinine (0.6-1.4) mg/dl Est Cr Clr Drug Dosing ml/min Est GFR ( Amer) ml/min Est GFR (Non-Af Amer) ml/min BUN/Creatinine Ratio (10-20) Glucose (70-99(Fasting)) mg/dl POC Glucose 116 H 126 H (70-99) mg/dl Calcium (8.6-10.3) mg/dl Total Bilirubin 0.4 (0.2-1.0) mg/dl Direct Bilirubin 0.0 (0-0.2) mg/dl AST 109 H (13-39) U/L ALT 155 H (7-52) U/L Alkaline Phosphatase 73 (34-104) U/L Total Protein 7.1 (6.0-8.3) gm/dl Albumin 4.4 (3.4-5.0) gm/dl
--- NOTE | 2023-07-09 14:21 | Hospitalist Progress Note ---
Date of Service July 09, 2023 Assessment & Plan (1) Diabetes mellitus: Plan: - Diagnosed last admission - Hemoglobin a1c= 10.3 06/2023 - Plan to continue home insulin regimen. 15units Lantus BID and will add meal time coverage as needed with SSI - Plan for carb consistent diet after NPO for surgery well-controlled (2) Perirectal abscess: Plan: - Plan for I&D - On Zosyn - management per surgery (3) GAA (acute kidney injury): Plan: Acute kidney failure, treated and resolved creatinine 1.5 on arrival, has corrected with IV fluids was 0.75 today Plan Dispo: medically stable Admission and Anticipated Discharge Date Admission Date: July 08, 2023 Supervising Physician Co-Signing Physician Notes Attending Attestation - Chart reviewed, care plan d/w EDMOND Noel. I agree w/ the montanez components of her documentation. Quincy Briscoe MD Subjective Patient lying in bed. No acute complaints. Denies any pain in the rectal area. Sugars have been manageable, however patient is NPO. States that his insulin was affordable when he picked it up Review of Systems Review of Systems: All systems reviewed & are unremarkable except as noted in Subjective Physical Exam Physical Exam: General: NAD, VS as above Resp: normal respiratory effort, lungs clear to auscultation CV: RRR, no murmur, Extremities: Moves all extremities, no edema Results & Data Results & Data Vital Signs (Past 12 Hours) Vital Signs Temp Pulse Resp BP Pulse Ox O2 Del Method 07/09/23 08:20 Room Air 07/09/23 07:52 36.6 C 76 16 138/79 97 Room Air Laboratory Results CBC and chemistry reviewed PG Care Time/CCT Total # of Minutes Spent Total Time Spent with Patient: Total time spent is greater than 50% in coordination of care (as documented) at patient's floor/unit and/or counseling patient: Coding Level of Care Code 93294 SUB INP/OBS CARE 2/35MIN Diagnoses Diabetes mellitus E11.9 Perirectal abscess K61.1 AGA (acute kidney injury) N17.9
--- NOTE | 2023-07-09 15:45 | Discharge Summary ---
Date of Service July 09, 2023 Admission HPI Per Admitting Provider This is a 23-year-old male who presented to the emergency department secondary to rectal pain. The patient has had a Perirectal abscess drained on 06/30/[address] Kirkland of [facility] surgery. The patient was treated with antibiotics in form of Zosyn and daptomycin while in the hospital and he was discharged on postop day #2. He was discharged on oral Augmentin. The patient presented to the emergency department today due to worsening rectal pain. He notes that the pain is located just to the left of his anus. He denies any fevers, shakes, or chills. He does note that the pain is worse when he sits down and hurts slightly when he moves his bowels. He does not report any other mitigating factors. He notes that he has not had any pus or drainage from this area. Because of his history of previously drained perirectal abscess he presented to the emergency department. It is nowhere the mention that this patient is an insulin-dependent diabetic. The patient notes that he takes 15 units of Lantus insulin twice daily. His most recent dose of this medication was at approximately 8:00 PM on 07/07/2023. The patient notes that he is compliant with his insulin and his blood glucose levels usually run between 101 130 Since arrival to the hospital this patient has had labs and imaging which) reviewed. CBC revealed white blood cell count was elevated 11.6. Hemoglobin and hematocrit were 13.8 and 40.9. Platelet count is normal. Chemistry profile showed sodium and potassium along with the BUN were within normal range. Creatinine had a slight elevation at 1.5. A CT scan of the abdomen and pelvis was performed that showed the patient had a large left-sided perirectal abscess measuring 6.1 x 3.6 cm. This was felt to extend inferiorly and is in contiguous connection with a perianal abscess measuring approximately 2.3 x 3.3 cm. At the time of my interview he was resting comfortably in bed and he was in no distress. Concerning past medical history the patient notes he is a diabetic. Concerning past surgical history he has had a previous incision and drainage of a perirectal abscess as noted above Concerning allergies he denies any medicine allergies Concerning social history he does not smoke Concerning family history the patient says his grandfather suffers from diabetes. Principal Diagnosis Perirectal abscess Discharge Data Allergies Allergy/AdvReac Type Severity Reaction Status Date / Time No Known Allergies Allergy Verified 07/08/23 00:57 Consultations 07/08/23 00:42 Consult General Surgery Stat 07/08/23 03:18 Consult Hospitalist Routine 07/09/23 13:10 Burn CD for patient Routine Procedures Performed Operation Date: 07/08/23 12:45 <No data on this case meets the specified criteria> Ordered Studies 07/07/23 21:47 CT pelvis w/IV con only Stat Hospital Course (1) Perirectal abscess: Patient was admitted to medical/surgical floor and started on IV fluids, IV zosyn and pain management as needed. Given the location and size of the abscess and recent open incision and drainage 9 days ago, case reveiwed with IR to see if abscess could be drained via image guidance. IR/radiology felt patient would benefit from transrectal ultrasound guided drainage. Discussed with patient about transfer to tertiary center where those services are available. Spole with [facility] colorectal surgeon Dr. Coughlin who accepted patient. Will continue current management. (2) Diabetes mellitus: Currently being controlled with Insulin 15 units BID. Total Time Total Time Spent Total Time Spent (In Minutes): 3 hours Discharge Plan Discharge Items Patient Disposition: Transfer Acute Care Hospital Reason For Visit: ROBIN-RECTAL ABSCESS Discharge Diagnosis: Perirectal abscess Activity: Per Instructions section Non-emergency contact: Primary Care Provider and Surgeon Call non-emergency contact if: your pain is worsening and you have a fever Follow-up/Referrals: [facility] [Primary Care Provider] - Diet: Regular Addtl Attending Provider Instructions: Discharge instructions per surgeon at transfer facility Pending Studies at Discharge: No Stand-Alone Forms: My [facility] Skilled Items Patient informed of condition?: Yes DNR: No Discharge Level of Care: Other Communicable Disease: No Discharge Prognosis: Stable Lines: Peripheral IV Urinary Catheter: No Medications and DC Order Prescriptions: Continued insulin glargine [Lantus Solostar U-100 Insulin] 100 unit/mL (3 mL) insulin pen 15 unit subcut BID Qty: 15 1RF Discontinued amoxicillin-pot clavulanate 875-125 mg tablet 1 tab PO BID Qty: 20 0RF Rx Instructions: STARTED 07/02/23 FOR 10 DAYS. Discharge Orders: Discharge Order (Routine); Ordered 07/09/23 Ordered By: Diana Alvarez Admission Data Admit Date/Time: 07/08/23 01:27 Attending Provider: Aaron Borja Admit Provider: Aaron Borja Primary Care Provider: [facility] Other Providers: Aaron Borja; Quincy Briscoe
== END 2023-07-09 16:32 | disposition short-term general hospital (02) | DRG 394 ==
LOC: ED 19:56 → EDINP 07-08 01:27 → 3W 07-08 01:58

== ENCOUNTER 2023-11-03 00:27 | Inpatient (IN) ==
--- NOTE | 2023-11-03 01:34 | Emergency Department Note ---
Impression & Plan Perirectal abscess, Pain, rectum ED Provider Note NAME: KWAKU GATES AGE: 23 SEX: M : 2000 ARRIVES VIA: Walk-In INFORMANT: Patient, triage note/nursing report and prior record ED PROVIDER(S): Tariq Emery MD CHIEF COMPLAINT: Rectal pain MEDICAL DECISION MAKING: Patient presents due to concern for left-sided buttock pain. Given the patient's prior history of pararectal abscess IV was established and blood work was obtained and the patient did have a CT of the abdomen pelvis performed. Patient was ordered IV Toradol. No evidence of obvious drainable fluid collection based on external exam at this time. I did review the patient's prior records and the patient has had prior admission here in hospital and did have an I&D completed under anesthesia with Dr. Navarro back in June. Patient also did have procedure completed with Dr. Cyr at at [facility]. Patient's blood work shows a white count of 14 with a hemoglobin of 13.7 with a normal platelet count. The patient's kidney function is unremarkable with normal LFTs. Procalcitonin is not elevated. I did review the patient's CT abdomen pelvis which shows perirectal abscess 5 x 2.8 cm. I informed the patient of the findings. Patient no longer has pain. I did speak with on-call general surgery service Elie Rahman PA-C with Dr. Borja. I also did speak with Dr. Kaufman and the patient was admitted to the medicine service. I informed the patient of the findings. Discussion w/ other healthcare providers: Elie Rahman PA-C with Dr. Borja general surgery Dr. Kaufman inpatient medicine service Prior /Outside records reviewed: I did review the patient's prior records and the patient has had prior admission here in hospital and did have an I&D completed under anesthesia with Dr. Navarro back in June. Patient also did have procedure completed with Dr. Cyr at at [facility] Differential diagnosis: Cellulitis, abscess, constipation, fissures, hemorrhoids, MRSA infection, DVT, necrotizing fasciitis, dermatitis, drug eruption, allergic reaction, as well as other pathologies were considered. Diagnostics, as interpreted by me: ECG: None Cardiac monitoring: An order was placed for continuous cardiac monitoring. The monitor shows a rate of 82 with sinus rhythm. Patient was placed on pulse oximetry Medical decision rules: None Imaging studies: I informally interpreted the patient's CT abdomen pelvis that showed perirectal abscess with formal report to follow. HPI: Patient presents due to concern for left-sided rectal pain. Patient states that his pain began about 2 days ago. The patient denies any fevers or chills. The patient is an insulin-dependent diabetic and does take Lantus. The patient denies any falls or trauma. The patient did take 2 doses of Tylenol which he notes slight improvement in his symptoms. No nausea vomiting. The patient states that he last had a bowel movement yesterday. The patient states he was unable to have a bowel movement today. Patient denies any blood in the stool. No history of hemorrhoids. The patient relates that he did have a prior procedure completed about 3 months ago most recently at [facility] due to concern for an infection. PAST MEDICAL HISTORY: See Below PAST SURGICAL HISTORY: See Below SOCIAL HISTORY: See Below HOME MEDICATIONS: See Below ALLERGIES: See Below VITALS: See Below PHYSICAL EXAMINATION: GENERAL: NAD, non-toxic. Wearing glasses. EYE EXAM: Normal conjunctiva. PERRL, no anisocoria and EOM's grossly intact w/o pain. OROPHARYNX: Moist mucus membranes, grossly normal dentition. NECK: Trachea midline, no stridor. LUNGS: Clear to auscultation. Normal chest wall mechanics. HEART: NSR, no MRG. ABDOMEN: Abdomen soft, non-tender, no masses, no rebound or guarding. BACK: No CVA TTP. SKIN: No rashes and no bruising. Rectal: External exam performed no obvious hemorrhoid or fissure, no obvious fluctuance of the perianal area. No fluctuance, redness or pain to the perineum. UPPER EXTREMITIES: Upper extremities are grossly normal. LOWER EXTREMITIES: Slight pain to palpation to the left medial gluteal area but without obvious fluctuance or redness. B/l LEs grossly normal, no edema. NEURO EXAM: A&O x3, cranial nerves II-XII grossly intact, normal speech, moves all 4 extremities. Past Med/Surg History Problem List (Updated 11/03/23 @ 05:53 by Tariq Emery MD) Pain, rectum (Acute) Elevated liver enzymes Hypertriglyceridemia Hypertension Dyslipidemia AGA (acute kidney injury) Diabetes mellitus Hyperglycemia due to diabetes mellitus (Acute) Diabetes mellitus, new onset (Acute) Perirectal abscess (Acute) Social History Smoking Status: Current every day smoker Tobacco Type: Cigarettes Second Hand Exposure: No; Do You Dip or Chew Tobacco: No; Hx Alcohol Use: No Hx Substance Use: No Preferred Language: [place] Communication Ability: Effective Provider Engagement Executive Required: No Beliefs That Will Affect Care: None Current Living Situation: Other Current Living Situation Comment: Student at [employer] Feels Safe at Home: Yes Assistive Devices: None Allergies Allergies Allergy/AdvReac Type Severity Reaction Status Date / Time No Known Allergies Allergy Verified 11/03/23 01:39 Home Meds Home Medications Medication Instructions Recorded Confirmed atorvastatin 40 mg tablet 40 mg PO DAILY 08/24/23 11/03/23 lisinopril 10 mg tablet 10 mg PO DAILY 08/24/23 11/03/23 Previous Rx's Medication Instructions Recorded insulin glargine 100 unit/mL (3 15 unit (0.15 mL) subcut BID #30 mL 10/28/23 mL) subcutaneous pen (Lantus Solostar U-100 Insulin) Results & Data (ED) Vital Signs Vital Signs - 24 hr 11/03/23 00:31 11/03/23 01:49 11/03/23 02:39 Temperature 36.5 C Temperature Source Temporal Artery Scan Pulse Rate 79 89 Pulse Rate [Finger] 89 Pulse Rhythm Regular Pulse Rhythm [Finger] Regular Respiratory Rate 20 16 20 Respiratory Effort / Characteristics Non-Labored Spontaneous Respiratory Depth Normal Respiratory Pattern Regular Blood Pressure 136/74 Blood Pressure [Right Arm] 135/75 Blood Pressure Mean 94 Blood Pressure Mean [Right Arm] 95 Pulse Oximetry 97 97 97 Oxygen Delivery Method Room Air Room Air Room Air Sepsis Recent Fever Within 48 Hours No Sepsis New/Unexplained Change in Mental Status No Sepsis Action Taken by Nursing No Action Required Home Medications Current Medication List: was personally reviewed by me Laboratory Data Attestation: I reviewed the patient's lab results. 11/03/23 02:14 11/03/23 02:14 Lab Results 11/03/23 Range/Units 02:14 WBC 14.85 H (4.8-10.8) K/ul RBC 5.36 (4.70-6.10) M/uL Hgb 13.7 L (14.0-18.0) g/dl Hct 42.7 (42.0-52.0) % MCV 79.7 L (80.0-100.0) fL MCH 25.6 (25.0-34.0) pg MCHC 32.1 (32.0-36.0) g/dL RDW Std Deviation 41.4 (36.4-46.3) fL RDW Coeff of Leda 14.4 (11.5-14.5) % Plt Count 249 (130-400) K/uL MPV 11.4 (9.4-12.4) fL Immature Gran % (Auto) 0.5 % Neut % (Auto) 84.0 % Lymph % (Auto) 9.0 % Leon % (Auto) 5.9 % Eos % (Auto) 0.3 % Baso % (Auto) 0.3 % Neut # (Auto) 12.47 H (1.40-6.50) K/uL Lymph # (Auto) 1.34 (1.20-3.40) K/uL Leon # (Auto) 0.87 H (0.11-0.59) K/uL Eos # (Auto) 0.05 (0.00-0.50) K/uL Baso # (Auto) 0.04 (0.00-0.20) K/uL Immature Gran # (Auto) 0.08 (0.01-0.20) K/uL Sodium 141 (136-145) mmol/L Potassium 3.6 (3.5-5.1) mmol/L Chloride 106 (98-107) mmol/L Carbon Dioxide 27 (21-32) mmol/L Anion Gap 8 (3-11) BUN 14 (6-23) mg/dl Creatinine 0.83 (0.6-1.4) mg/dl Est Cr Clr Drug Dosing 153.2 ml/min Est GFR ( Amer) 144.8 ml/min Est GFR (Non-Af Amer) 124.9 ml/min BUN/Creatinine Ratio 16.9 (10-20) Glucose 70 (70-99(Fasting)) mg/dl Calcium 9.3 (8.6-10.3) mg/dl Total Bilirubin 0.6 (0.2-1.0) mg/dl AST 16 (13-39) U/L ALT 35 (7-52) U/L Alkaline Phosphatase 100 (34-104) U/L Total Protein 8.0 (6.0-8.3) gm/dl Albumin 4.8 (3.4-5.0) gm/dl Globulin 3.2 (2.5-4.0) gm/dl Albumin/Globulin Ratio 1.5 (0.9-2) Procalcitonin 0.04 (0-0.5) ng/ml Administered Medications Potassium Chloride/Sodium Chloride (Normal Saline W/20 Meq Kcl) 20 meq in 1,000 mls @ 100 mls/hr IV .Q10H RAUL; Protocol Stop: 12/03/23 04:14 Last Admin: 11/03/23 04:27 Dose: 100 mls/hr Documented By: DORY Discontinued Medications Daptomycin 300 mg/ Syringe 6 mls @ 3 mls/min IV Q24H RAUL; Protocol Stop: 11/10/23 03:29 Last Admin: 11/03/23 04:09 Dose: 3 mls/min Documented By: DORY Piperacillin Sod/Tazobactam Sod (Zosyn) 4.5 gm in 100 mls @ 200 mls/hr IV NOW ONE Stop: 11/03/23 03:47 Last Infusion: 11/03/23 04:48 Dose: Infused Documented By: Admin: 11/03/23 04:09 Dose: 200 mls/hr Documented By: DORY Ioversol (Optiray 320 100ml) 92 ml IV ONCE ONE Stop: 11/03/23 02:29 Last Admin: 11/03/23 02:29 Dose: 92 ml Documented By: ANTHONY Ketorolac Tromethamine (Ketorolac Tromethamine 15 Mg/Ml Vial) 10 mg IV NOW ONE Stop: 11/03/23 01:50 Last Admin: 11/03/23 02:11 Dose: 10 mg Documented By: JODEE Imaging Data Radiologist's Impression: Abdomen/Pelvis CT 11/03/23 01:49 Exam(s): CT ABDOMEN + PELVIS With Contrast IV Amt: 92 ml optiray 320 EXAM: CT Abdomen and Pelvis With Intravenous Contrast CLINICAL HISTORY: Reason for exam: L sided rectal/buttock pain; h/o rectal abscess. TECHNIQUE: Axial computed tomography images of the abdomen and pelvis with intravenous contrast. CTDI is 14.92 mGy and DLP is 899.32 mGy-cm. Automated exposure control was utilized for the study. A dose lowering technique was utilized adhering to the principles of ALARA. CONTRAST: Patient received 92 ml optiray 320 of IV contrast COMPARISON: CT abdomen pelvis July 07, 2023. FINDINGS: Lung bases: Unremarkable. No mass. No consolidation. ABDOMEN: Liver: Unremarkable. No mass. Gallbladder and bile ducts: Unremarkable. No calcified stones. No ductal dilation. Pancreas: Unremarkable. No mass. No ductal dilation. Spleen: Unremarkable. No splenomegaly. Adrenals: Unremarkable. No mass. Kidneys and ureters: Unremarkable. No solid mass. No hydronephrosis. Stomach and bowel: Unremarkable. No obstruction. No mucosal thickening. PELVIS: Appendix: No findings to suggest acute appendicitis. Bladder: Unremarkable. No mass. Reproductive: Unremarkable as visualized. ABDOMEN and PELVIS: Intraperitoneal space: Unremarkable. No free air. No significant fluid collection. Bones/joints: No acute fracture. No dislocation. Soft tissues: Perirectal abscess measures 5.0 x 2.8 cm, located on the LEFT side of the rectum. Surgical evaluation recommended. Vasculature: Unremarkable. No abdominal aortic aneurysm. Lymph nodes: Unremarkable. No enlarged lymph nodes. IMPRESSION: Perirectal abscess measures 5.0 x 2.8 cm, located on the LEFT side of the rectum. Surgical evaluation recommended. This is slightly smaller on the current exam than when compared to July 07, 2023. Electronically signed by: Daren Sesay MD 11/03/23 03:58 AM Discharge Plan Visit Data Chief Complaint: Rectal Pain Stated Complaint: RECTAL PAIN ED Provider: Tariq Emery Discharge Problem: Perirectal abscess, Pain, rectum Patient Disposition: Admitted As Inpatient Discharge Instructions Interventions: ED Discharge Assessment Last Done: 11/03/23 04:37
[2023-11-03] MEDS: KETOROLAC TROMETHAMINE 15 MG/ML VIAL IV ONE (02:11)
[2023-11-03] MEDS: OPTIRAY 320 100ml IV ONE (02:29)
[2023-11-03 02:41] LABS: Basophils # (auto) 0.04 K/uL (0.00-0.20); Basophils % (auto) 0.3 %; Eosinophils # (auto) 0.05 K/uL (0.00-0.50); Eosinophils % (auto) 0.3 %; Hematocrit (blood only) 42.7 % (42.0-52.0); Hemoglobin 13.7 g/dl (14.0-18.0); Immature Granulocytes # (auto) 0.08 K/uL (0.01-0.20); Immature Granulocytes % (auto) 0.5 %; Lymphocytes # (auto) 1.34 K/uL (1.20-3.40); Mean Corpuscular Hemoglobin 25.6 pg (25.0-34.0); Mean Corpuscular Hgb Conc 32.1 g/dL (32.0-36.0); Mean Corpuscular Volume 79.7 fL (80.0-100.0); Mean Platelet Volume 11.4 fL (9.4-12.4); Monocytes # (auto) 0.87 K/uL (0.11-0.59); Monocytes % (auto) 5.9 %; Neutrophils # (auto) 12.47 K/uL (1.40-6.50); Platelet Count 249 K/uL (130-400); RDW Coefficient of Variation 14.4 % (11.5-14.5); RDW Standard Deviation 41.4 fL (36.4-46.3); Red Blood Count 5.36 M/uL (4.70-6.10); White Blood Count 14.85 K/ul (4.8-10.8)
[2023-11-03 02:49] LABS: Albumin Globulin Ratio 1.5 (0.9-2); Albumin Level 4.8 gm/dl (3.4-5.0); BUN Creatinine Ratio 16.9 (10-20); Bilirubin,Total 0.6 mg/dl (0.2-1.0); Calcium 9.3 mg/dl (8.6-10.3); Creatinine Clr Calc Pharmacy 153.2 ml/min; Est GFR (African American) 144.8 ml/min; Est GFR (Non-African American) 124.9 ml/min; Globulin 3.2 gm/dl (2.5-4.0); Potassium 3.6 mmol/L (3.5-5.1)
--- NOTE | 2023-11-03 03:43 | Surgery Consultation ---
Date of Consultation November 03, 2023 Assessment & Plan (1) Perirectal abscess: I discussed with the treating emergency room physician the patient is being admitted to the medical service. From surgical perspective we recommend the following: Keep patient n.p.o. for the present time Antibiotics in the form of Zosyn and daptomycin have been initiated which should continue CT scan will be reviewed by Dr. Borja, my attending physician. He will determine if incision and drainage will be performed here at [facility] or if patient will need to be sent back to colorectal due to the recurrence of his perirectal abscess. Supervising Physician Co-Signing Physician Notes I personally saw and evaluated the patient with Armaan Rahman PA-C and agree with the assessment and plan 23 yo male with recurrent shivam-rectal abscess His CT images and results were personally viewed and interpreted by myself He has a true perirectal abscess that extends up into the peritoneum with no signs of abscess on shivam-anal exam We did discuss the case with IR who stated they would only be able to aspirate the collection I would recommend a transfer to a tertiary care center for a second evaluation with IR and colorectal evaluation History of Present Illness Reason for Consultation: Perirectal abscess History of Present Illness This is a 23-year-old male who presented the emergency department secondary to rectal pain. Patient says that he has been having pain in his rectum on the left side for approximately 2 days. He denies any fevers, shakes, or chills. He denies any open areas or areas of drainage. The patient does have a history of diabetes. The patient had history of perirectal abscess that was drained in June 30, [address] Navarro of [facility] general surgery. Following this procedure the patient was treated with antibiotics in the form of Zosyn and daptomycin and he was discharged in the hospital after a 2-day hospital stay with oral Augmentin in place. The patient Venkat presented to [facility] on July 08, 2023 secondary to recurrence of his perirectal abscess. Patient was transferred to [facility] due to the recurrence of his abscess. On July 10, 2023 the patient underwent an exam under anesthesia and incision and drainage of his perirectal abscess and seton placement. Since arrival to [facility] he has had labs and imaging which independent reviewed. CBC reveals white blood cell count was elevated 14.8. Hemoglobin and hematocrit were 13.7 and 42.7 and platelet count was normal. Chemistry profile showed sodium and potassium as well as the BUN and creatinine were within the normal range. A CT scan of the abdomen pelvis was performed. And this appeared to demonstrate recurrence of patient's perirectal abscess on the left side. At the time of my interview he was resting comfortably in bed and he was in no distress. Concerning past medical history the patient has a history of insulin-dependent diabetes Concerning past surgical history he has had history of incision and drainage of perirectal abscess on 2 occasions Allergies Allergy/AdvReac Type Severity Reaction Status Date / Time No Known Allergies Allergy Verified 11/03/23 01:39 Home Medications Medication Instructions Recorded Confirmed Type atorvastatin 40 mg tablet 40 mg PO DAILY 08/24/23 11/03/23 History lisinopril 10 mg tablet 10 mg PO DAILY 08/24/23 11/03/23 History insulin glargine 100 unit/mL (3 15 unit (0.15 mL) subcut BID #30 mL 10/28/23 11/03/23 Rx mL) subcutaneous pen (Lantus Solostar U-100 Insulin) Patient History Social History Smoking Status: Current every day smoker Tobacco Type: Cigarettes Second Hand Exposure: No; Do You Dip or Chew Tobacco: No; Hx Alcohol Use: No Hx Substance Use: No Preferred Language: Chinese Communication Ability: Effective House Painter Required: No Beliefs That Will Affect Care: None Current Living Situation: Other Current Living Situation Comment: Student at [employer] Feels Safe at Home: Yes Assistive Devices: None Review of Systems Review of Systems: All systems reviewed & are unremarkable except as noted in HPI & below Physical Exam Constitutional: WD/WN, vitals as above Eyes: no conjunctival abnormality ENMT: Ears: no hearing impairment and no external ear abnormality Neck: trachea midline Respiratory: normal respiratory effort; no respiratory distress and no labored breathing Cardiovascular: Rate/Rhythm: regular rate and regular rhythm Gastrointestinal (Abdomen): Abdomen is soft and nontender to palpation. The patient's rectum was examined. There is no crepitus in the soft tissue. There are no open areas or areas of drainage. The patient did have pain with palpation just to the left side of the rectum Musculoskeletal: No calf tenderness Skin: no rashes Neurologic: moves all extremities Psychiatric: A+Ox3, euthymic affect Results & Data Vital Signs (Past 12 Hours) Vital Signs Temp Pulse Pulse Resp BP BP Pulse Ox 11/03/23 02:39 89 20 135/75 97 11/03/23 01:49 89 16 97 11/03/23 00:31 36.5 C 79 20 136/74 97 O2 Del Method 11/03/23 02:39 Room Air 11/03/23 01:49 Room Air 11/03/23 00:31 Room Air PG Care Time/CCT Total # of Minutes Spent Total Time Spent with Patient: Total time spent is greater than 50% in coordination of care (as documented) at patient's floor/unit and/or counseling patient: Coding Level of Care Code 38008 IN/OBS CONSULT LVL 5,80M Diagnoses Perirectal abscess K61.1
--- NOTE | 2023-11-03 03:59 | CT Scan Report ---
Exam(s): CT ABDOMEN + PELVIS With Contrast IV Amt: 92 ml optiray 320 EXAM: CT Abdomen and Pelvis With Intravenous Contrast CLINICAL HISTORY: Reason for exam: L sided rectal/buttock pain; h/o rectal abscess. TECHNIQUE: Axial computed tomography images of the abdomen and pelvis with intravenous contrast. CTDI is 14.92 mGy and DLP is 899.32 mGy-cm. Automated exposure control was utilized for the study. A dose lowering technique was utilized adhering to the principles of ALARA. CONTRAST: Patient received 92 ml optiray 320 of IV contrast COMPARISON: CT abdomen pelvis July 07, 2023. FINDINGS: Lung bases: Unremarkable. No mass. No consolidation. ABDOMEN: Liver: Unremarkable. No mass. Gallbladder and bile ducts: Unremarkable. No calcified stones. No ductal dilation. Pancreas: Unremarkable. No mass. No ductal dilation. Spleen: Unremarkable. No splenomegaly. Adrenals: Unremarkable. No mass. Kidneys and ureters: Unremarkable. No solid mass. No hydronephrosis. Stomach and bowel: Unremarkable. No obstruction. No mucosal thickening. PELVIS: Appendix: No findings to suggest acute appendicitis. Bladder: Unremarkable. No mass. Reproductive: Unremarkable as visualized. ABDOMEN and PELVIS: Intraperitoneal space: Unremarkable. No free air. No significant fluid collection. Bones/joints: No acute fracture. No dislocation. Soft tissues: Perirectal abscess measures 5.0 x 2.8 cm, located on the LEFT side of the rectum. Surgical evaluation recommended. Vasculature: Unremarkable. No abdominal aortic aneurysm. Lymph nodes: Unremarkable. No enlarged lymph nodes. IMPRESSION: Perirectal abscess measures 5.0 x 2.8 cm, located on the LEFT side of the rectum. Surgical evaluation recommended. This is slightly smaller on the current exam than when compared to July 07, 2023. Electronically signed by: Daren Sesay MD 11/03/23 03:58 AM
[2023-11-03] MEDS: PIPERACILLIN/TAZOBACTAM 4.5 GM/100 ML BAG IV ONE (04:09)
[2023-11-03] MEDS: DAPTOmycin 300 MG in SYRINGE 0 ML IV SCH (04:09)
--- NOTE | 2023-11-03 04:12 | History & Physical Report ---
Date of Service November 03, 2023 Assessment & Plan (1) Perirectal abscess: (2) Diabetes mellitus: (3) Hypertension: (4) Dyslipidemia: Plan Perirectal abscess- Admit to medical surgical floor N.p.o. Daptomycin 300 mg IV 24 hours Zosyn 4.5 g IV every 8 hours Acetaminophen 1 g IV every 8 hours as needed for mild pain or fever Morphine sulfate 4 mg IV every 3 hours as needed for moderate to severe pain NSS + KCl 20 mill equivalents at 100 mL/h Consult general surgery Diabetes mellitus- Type I BSG 70 on admission Hold glargine 15 units subcu twice daily Placed on Accu-Cheks with NovoLog SSI Hypertension- Hold lisinopril History of Present Illness Chief Complaint: The patient presents to the emergency department with 2 days of worsening buttock pain, similar to previous perirectal abscess Primary Care Provider: [facility], [place] The patient is a 23-year-old male including hypertriglyceridemia, hypertension, acute kidney injury, diabetes mellitus type 1, and perirectal abscess. He was initially admitted to [facility] from 06/30-07/02/2023, undergoing an I&D on 06/30, and was discharged on Augmentin 875 mg twice daily for 10 days patient returned to [facility] on -07/09/2023 with recurrent abscess, and was then transferred to [facility], where he had an I&D performed on 07/10/2023. The patient presents to the emergency department with recurrent symptoms as noted above. Allergies Allergy/AdvReac Type Severity Reaction Status Date / Time No Known Allergies Allergy Verified 11/03/23 01:39 Home Medications Medication Instructions Recorded Confirmed Type atorvastatin 40 mg tablet 40 mg PO DAILY 08/24/23 11/03/23 History lisinopril 10 mg tablet 10 mg PO DAILY 08/24/23 11/03/23 History insulin glargine 100 unit/mL (3 15 unit (0.15 mL) subcut BID #30 mL 10/28/23 11/03/23 Rx mL) subcutaneous pen (Lantus Solostar U-100 Insulin) Past Med/Surg History Problem List Elevated liver enzymes Hypertriglyceridemia Hypertension Dyslipidemia AGA (acute kidney injury) Diabetes mellitus Hyperglycemia due to diabetes mellitus (Acute) Diabetes mellitus, new onset (Acute) Perirectal abscess (Acute) Social History Smoking Status: Current some day smoker Tobacco Type: Cigarettes Second Hand Exposure: No; Do You Dip or Chew Tobacco: No; Hx Alcohol Use: No Hx Substance Use: No Preferred Language: [place] Communication Ability: Effective Steel Pourer Required: No Beliefs That Will Affect Care: None Current Living Situation: Family Current Living Situation Comment: student at [employer] Feels Safe at Home: Yes Assistive Devices: None Review of Systems Review of Systems: The patient denies chest pain, palpitations, shortness of breath, dyspnea on exertion, cough, lower extremity swelling, sore throat, fevers, chills, sweats, weight change, fatigue, nausea, vomiting, diarrhea , constipation, abdominal pain, pelvic pain, blood in urine or stool, dysuria, urinary frequency or urgency, lightheadedness, dizziness, headache, memory loss, loss of consciousness, imbalance, focal or generalized weakness, numbness or tingling in arms or legs, generalized arthralgias or myalgias, neck pain, or night sweats. The review of systems is otherwise negative other than for that already noted above, and at least 10 systems have been reviewed. Physical Exam Physical Exam: The patient is awake, alert and oriented 3, well developed and well nourished, normocephalic and atraumatic, lying in bed and in no acute distress. HEENT--PERRL, EOMI, mucous membranes and oropharynx dry. Neck--supple. No JVD. No bruits. Thyroid normal, trachea midline, no adenopathy. Heart--normal S1 and S2. No murmurs, rubs or gallops. Lungs--clear bilaterally, no respiratory distress, no accessory muscle use. Abdomen--normal bowel sounds and soft. Nontender. Nondistended, no hernias or masses, no organomegaly. Extremities--no cyanosis or clubbing. No edema. There are good distal pulses b/l. Dermatologic--refer to ED and surgical notes, Neurologic--cranial nerves II through XII grossly intact. Rheumatologic--normal range of motion. Psychiatric--normal affect. Results & Data Results & Data Vital Signs (Past 12 Hours) Vital Signs Temp Pulse Pulse Resp BP BP Pulse Ox 11/03/23 02:39 89 20 135/75 97 11/03/23 01:49 89 16 97 11/03/23 00:31 36.5 C 79 20 136/74 97 O2 Del Method 11/03/23 02:39 Room Air 11/03/23 01:49 Room Air 11/03/23 00:31 Room Air Laboratory Results Laboratory Results WBC 14.85 K/ul (4.8-10.8) H 11/03/23 02:14 RBC 5.36 M/uL (4.70-6.10) 11/03/23 02:14 Hgb 13.7 g/dl (14.0-18.0) L 11/03/23 02:14 Hct 42.7 % (42.0-52.0) 11/03/23 02:14 MCV 79.7 fL (80.0-100.0) L 11/03/23 02:14 MCH 25.6 pg (25.0-34.0) 11/03/23 02:14 MCHC 32.1 g/dL (32.0-36.0) 11/03/23 02:14 RDW Std Deviation 41.4 fL (36.4-46.3) 11/03/23 02:14 RDW Coeff of Leda 14.4 % (11.5-14.5) 11/03/23 02:14 Plt Count 249 K/uL (130-400) 11/03/23 02:14 MPV 11.4 fL (9.4-12.4) 11/03/23 02:14 Immature Gran % (Auto) 0.5 % 11/03/23 02:14 Neut % (Auto) 84.0 % 11/03/23 02:14 Lymph % (Auto) 9.0 % 11/03/23 02:14 [place] % (Auto) 5.9 % 11/03/23 02:14 Eos % (Auto) 0.3 % 11/03/23 02:14 Baso % (Auto) 0.3 % 11/03/23 02:14 Neut # (Auto) 12.47 K/uL (1.40-6.50) H 11/03/23 02:14 Lymph # (Auto) 1.34 K/uL (1.20-3.40) 11/03/23 02:14 [place] # (Auto) 0.87 K/uL (0.11-0.59) H 11/03/23 02:14 Eos # (Auto) 0.05 K/uL (0.00-0.50) 11/03/23 02:14 Baso # (Auto) 0.04 K/uL (0.00-0.20) 11/03/23 02:14 Immature Gran # (Auto) 0.08 K/uL (0.01-0.20) 11/03/23 02:14 Sodium 141 mmol/L (136-145) 11/03/23 02:14 Potassium 3.6 mmol/L (3.5-5.1) 11/03/23 02:14 Chloride 106 mmol/L (98-107) 11/03/23 02:14 Carbon Dioxide 27 mmol/L (21-32) 11/03/23 02:14 Anion Gap 8 (3-11) 11/03/23 02:14 BUN 14 mg/dl (6-23) 11/03/23 02:14 Creatinine 0.83 mg/dl (0.6-1.4) 11/03/23 02:14 Est Cr Clr Drug Dosing 153.2 ml/min 11/03/23 02:14 Est GFR ( Amer) 144.8 ml/min 11/03/23 02:14 Est GFR (Non-Af Amer) 124.9 ml/min 11/03/23 02:14 BUN/Creatinine Ratio 16.9 (10-20) 11/03/23 02:14 Glucose 70 mg/dl (70-99(Fasting)) 11/03/23 02:14 Calcium 9.3 mg/dl (8.6-10.3) 11/03/23 02:14 Total Bilirubin 0.6 mg/dl (0.2-1.0) 11/03/23 02:14 AST 16 U/L (13-39) 11/03/23 02:14 ALT 35 U/L (7-52) 11/03/23 02:14 Alkaline Phosphatase 100 U/L (34-104) 11/03/23 02:14 Total Protein 8.0 gm/dl (6.0-8.3) 11/03/23 02:14 Albumin 4.8 gm/dl (3.4-5.0) 11/03/23 02:14 Globulin 3.2 gm/dl (2.5-4.0) 11/03/23 02:14 Albumin/Globulin Ratio 1.5 (0.9-2) 11/03/23 02:14 Impressions Abdomen/Pelvis CT 11/03/23 01:49 Exam(s): CT ABDOMEN + PELVIS With Contrast IV Amt: 92 ml optiray 320 EXAM: CT Abdomen and Pelvis With Intravenous Contrast CLINICAL HISTORY: Reason for exam: L sided rectal/buttock pain; h/o rectal abscess. TECHNIQUE: Axial computed tomography images of the abdomen and pelvis with intravenous contrast. CTDI is 14.92 mGy and DLP is 899.32 mGy-cm. Automated exposure control was utilized for the study. A dose lowering technique was utilized adhering to the principles of ALARA. CONTRAST: Patient received 92 ml optiray 320 of IV contrast COMPARISON: CT abdomen pelvis July 07, 2023. FINDINGS: Lung bases: Unremarkable. No mass. No consolidation. ABDOMEN: Liver: Unremarkable. No mass. Gallbladder and bile ducts: Unremarkable. No calcified stones. No ductal dilation. Pancreas: Unremarkable. No mass. No ductal dilation. Spleen: Unremarkable. No splenomegaly. Adrenals: Unremarkable. No mass. Kidneys and ureters: Unremarkable. No solid mass. No hydronephrosis. Stomach and bowel: Unremarkable. No obstruction. No mucosal thickening. PELVIS: Appendix: No findings to suggest acute appendicitis. Bladder: Unremarkable. No mass. Reproductive: Unremarkable as visualized. ABDOMEN and PELVIS: Intraperitoneal space: Unremarkable. No free air. No significant fluid collection. Bones/joints: No acute fracture. No dislocation. Soft tissues: Perirectal abscess measures 5.0 x 2.8 cm, located on the LEFT side of the rectum. Surgical evaluation recommended. Vasculature: Unremarkable. No abdominal aortic aneurysm. Lymph nodes: Unremarkable. No enlarged lymph nodes. IMPRESSION: Perirectal abscess measures 5.0 x 2.8 cm, located on the LEFT side of the rectum. Surgical evaluation recommended. This is slightly smaller on the current exam than when compared to July 07, 2023. Electronically signed by: Daren Sesay MD 11/03/23 03:58 AM Left Code Status & VTE Plan Code Status Full code VTE Prophylaxis Plan VTE Prophylaxis will be ordered: Yes PG Care Time/CCT Total # of Minutes Spent Total Time Spent with Patient: Total time spent is greater than 50% in coordination of care (as documented) at patient's floor/unit and/or counseling patient: Coding Level of Care Code 98244 INT INP/OBS CARE MIN Diagnoses Perirectal abscess K61.1 Diabetes mellitus E11.9 Hypertension I10 Dyslipidemia E78.5
[2023-11-03] MEDS: NSS + 20MEQ KCL 20 MEQ/1,000 ML BAG IV SCH (04:27)
[2023-11-03] MEDS ORDERED: GLUCAGON FOR INJ 1 MG VIAL SQ PRN (05:08)
[2023-11-03] MEDS ORDERED: CARBOHYDRATES FOR HYPOGLYCEMIA PO PRN (05:08)
[2023-11-03] MEDS ORDERED: GLUCOSE 10 TAB/TUBE PO PRN (05:08)
[2023-11-03] MEDS ORDERED: DEXTROSE 50% 50 ML SYRINGE IV PRN (05:08)
[2023-11-03] MEDS ORDERED: ONDANSETRON INJ 2 MG/ML 2 ML VIAL IV PRN (05:08)
[2023-11-03] MEDS ORDERED: GLUCOSE 40% GEL 15 GM TUBE PO PRN (05:08)
[2023-11-03] MEDS: INSULIN ASPART PER UNIT CHARGE SC SCH (06:07)
[2023-11-03] MEDS: ACETAMINOPHEN 1,000 MG/100 ML VIAL IV PRN (07:41)
[2023-11-03] MEDS: MoRPHine SULFATE 4 MG/ML 1 ML CARP\\VIAL IV PRN (09:54)
[2023-11-03] MEDS: PIPERACILLIN/TAZOBACTAM 4.5 GM in DEXTROSE 5% MINI-B 100 ML IV SCH (09:58)
[2023-11-03 15:50] LABS: Estimated Average Glucose 131 mg/dl; Hemoglobin A1C 6.2 % (4.5-5.6)
--- NOTE | 2023-11-03 17:52 | Discharge Summary ---
Date of Service November 03, 2023 Admission HPI Per Admitting Provider The patient is a 23-year-old male including hypertriglyceridemia, hypertension, acute kidney injury, diabetes mellitus type 1, and perirectal abscess. He was initially admitted to [facility] from 06/30-07/02/2023, undergoing an I&D on 06/30, and was discharged on Augmentin 875 mg twice daily for 10 days patient returned to [facility] on -07/09/2023 with recurrent abscess, and was then transferred to [facility], where he had an I&D performed on 07/10/2023. The patient presents to the emergency department with recurrent symptoms as noted above. Admission Exam Per Admitting Provider The patient is awake, alert and oriented 3, well developed and well nourished, normocephalic and atraumatic, lying in bed and in no acute distress. HEENT--PERRL, EOMI, mucous membranes and oropharynx dry. Neck--supple. No JVD. No bruits. Thyroid normal, trachea midline, no adenopathy. Heart--normal S1 and S2. No murmurs, rubs or gallops. Lungs--clear bilaterally, no respiratory distress, no accessory muscle use. Abdomen--normal bowel sounds and soft. Nontender. Nondistended, no hernias or masses, no organomegaly. Extremities--no cyanosis or clubbing. No edema. There are good distal pulses b/l. Dermatologic--refer to ED and surgical notes, Neurologic--cranial nerves II through XII grossly intact. Rheumatologic--normal range of motion. Psychiatric--normal affect. Principal Diagnosis Perirectal abscess Discharge Exam General: alert and oriented, no acute distress, laying in bed comfortably Cardio: Regular rate and rhythm Resp: Lungs clear to auscultation bilaterally GI: Soft, nontender, bowel sounds active Skin: Warm and dry, no rashes Discharge Data Allergies Allergy/AdvReac Type Severity Reaction Status Date / Time No Known Allergies Allergy Verified 11/03/23 01:39 Consultations 11/03/23 03:20 Consult General Surgery Routine 11/03/23 03:35 ED Decision to Admit Stat Procedures Performed Operation Date: 11/03/23 08:45 <No data on this case meets the specified criteria> Ordered Studies 06/26/24 01:49 CT abd pelvis IV con only Stat Hospital Course (1) Hypertension: (2) Diabetes mellitus: (3) Perirectal abscess: Plan Pt is a 23 yo male with a past med hx of perirectal abscesses x2 in the past requiring surgical drainage at [place], HTN, and DMT1 who presented to the hospital on 11/02 for perirectal abscess. #Perirectal abscess - pt presented to the hospital with 2 days of rectal discomfort, CT shows 5.0 x2.8 cm perirectal abscess - vitals stable, WBC count 14 on admission - IR consulted and note that they would not be able to do this drainage and recommend transfer to [place] - contacted [place] and spoke to Dr. Saini colorectal surgeon who is willing to accept pt - pt NPO and started on daptomycin and zosyn, last dose zosyn 5 pm 11/02, last dose of daptomycin 4am 11/02, recommend continue at receiving facility (or other preferred regime) #Diabetes mellitus-Type I - typically on 15 units glargine BID - blood sugar 70 on admission so insulin was held #HTN - BPs stable thought admission so home lisinorpil held Pt accepted to [facility] for drainage with colorectal surgery. Total Time Total Time Spent Total Time Spent (In Minutes): As per attending attestation. Discharge Plan Discharge Items Patient Disposition: Transfer Acute Care Hospital Reason For Visit: PERIRECTAL ABSCESS Discharge Diagnosis: Perirectal abscess Activity: Resume your previous activity Non-emergency contact: Primary Care Provider and Specialist Call non-emergency contact if: you have any medication questions, your symptoms worsen and your temperature is above 101 Follow-up/Referrals: [facility] [Primary Care Provider] - Diet: Carb Count or DM1 Addtl Attending Provider Instructions: Pt is a 23 yo male with a past med hx of perirectal abscesses x2 in the past requiring surgical drainage at [place], HTN, and DMT1 who presented to the hospital on 11/02 for perirectal abscess. #Perirectal abscess - pt presented to the hospital with 2 days of rectal discomfort, CT shows 5.0 x2.8 cm perirectal abscess - contacted [facility] and spoke to Dr. Saini colorectal surgeon who is willing to accept pt - vitals stable, WBC count 14 on admission - pt NPO and started on daptomycin and zosyn, last dose zosyn 5 pm 11/02, last dose of daptomycin 4am 11/02, recommend continue at receiving facility (or other preferred regime) - IR consulted and note that they would not be able to do this drainage and rec ommend transfer to [place] #Diabetes mellitus-Type I - typically on 15 units glargine BID - blood sugar 70 on admission so insulin was held #HTN - BPs stable throught admission so home lisinorpil held Pt accepted to [facility] for drainage with colorectal surgery. Pending Studies at Discharge: No Stand-Alone Forms: My [facility] Skilled Items Patient informed of condition?: Yes DNR: No Discharge Level of Care: Other Communicable Disease: No Discharge Prognosis: Stable Lines: Peripheral IV Urinary Catheter: No Medications and DC Order Prescriptions: Held insulin glargine [Lantus Solostar U-100 Insulin] 100 unit/mL (3 mL) insulin pen 15 unit subcut BID Qty: 30 1RF Hold Instructions: Resume on 11/05/23. Resume home regime once home lisinopril 10 mg tablet 10 mg PO DAILY Hold Instructions: Resume on 11/05/23. Resume home regime once home atorvastatin 40 mg tablet 40 mg PO DAILY Hold Instructions: Resume on 11/05/23. Resume home regime once home Discharge Orders: Discharge Order (Routine); Ordered 11/03/23 Ordered By: Melly Ramirez Admission Data Admit Date/Time: 11/03/23 04:11 Attending Provider: Keli Velasquez Admit Provider: Jeremiah Jeter Primary Care Provider: [facility] Other Providers: Aaron Borja; Jeremiah Jeter Other Interventions: Discharge Summary Assessment (RN) Last Done: 11/04/23 07:08 Supervising Physician Co-Signing Physician Notes Attending Physician Supervision Note: I independently interviewed and examined the patient and verified the montanez history and physical, reviewed labs and image studies and agree with findings and care plan noted above. Resident Activity Tracking Resident Involvement: Resident Care Provided Care Provided: Adult Hospital Medicine
[2023-11-04] MEDS: DAPTOmycin 300 MG in SYRINGE 0 ML IV SCH (05:43)
[2023-11-04 06:45] LABS: Basophils # (auto) 0.03 K/uL (0.00-0.20); Basophils % (auto) 0.2 %; Eosinophils # (auto) 0.06 K/uL (0.00-0.50); Eosinophils % (auto) 0.4 %; Hematocrit (blood only) 39.3 % (42.0-52.0); Hemoglobin 12.3 g/dl (14.0-18.0); Immature Granulocytes # (auto) 0.24 K/uL (0.01-0.20); Immature Granulocytes % (auto) 1.5 %; Lymphocytes # (auto) 1.07 K/uL (1.20-3.40); Lymphocytes % (auto) 6.8 %; Mean Corpuscular Hemoglobin 25.2 pg (25.0-34.0); Mean Corpuscular Hgb Conc 31.3 g/dL (32.0-36.0); Mean Corpuscular Volume 80.4 fL (80.0-100.0); Mean Platelet Volume 11.4 fL (9.4-12.4); Monocytes # (auto) 1.23 K/uL (0.11-0.59); Monocytes % (auto) 7.8 %; Neutrophils # (auto) 13.22 K/uL (1.40-6.50); Neutrophils % (auto) 83.3 %; Platelet Count 236 K/uL (130-400); RDW Coefficient of Variation 14.2 % (11.5-14.5); RDW Standard Deviation 41.3 fL (36.4-46.3); Red Blood Count 4.89 M/uL (4.70-6.10); White Blood Count 15.85 K/ul (4.8-10.8)
[2023-11-04 06:57] LABS: Alanine Aminotransferase 29 U/L (7-52); Albumin Globulin Ratio 1.2 (0.9-2); Albumin Level 4.1 gm/dl (3.4-5.0); Alkaline Phosphatase 89 U/L (34-104); Anion Gap 10 (3-11); Aspartate Aminotransferase 15 U/L (13-39); BUN Creatinine Ratio 11.4 (10-20); Bilirubin,Total 1.2 mg/dl (0.2-1.0); Blood Urea Nitrogen 8 mg/dl (6-23); Carbon Dioxide 24 mmol/L (21-32); Chloride 106 mmol/L (98-107); Creatinine Clr Calc Pharmacy 170.9 ml/min; Est GFR (African American) > 150.0 ml/min; Globulin 3.3 gm/dl (2.5-4.0); Glucose 90 mg/dl (70-99(Fasting)); Magnesium 1.9 mg/dl (1.7-2.4); Potassium 3.7 mmol/L (3.5-5.1); Sodium 140 mmol/L (136-145); Total Protein 7.4 gm/dl (6.0-8.3)
--- NOTE | 2023-11-04 09:36 | Communication Note ---
Date of Service: November 04, 2023 Pt still on list this morning. Went to see patient around 8 am and nurse informed me he already left for [facility] shortly before I came to see him. Was not seen by myself or my attending this morning prior to discharge to [facility]. Nurse states he was stable when he left, blood sugars have been good 80-90s even though he continued to be NPO. Did have urinary retention x1 yesterday morning but has since voided without issue and voided 200 mL prior to leaving this morning. Nurse had no acute concerns prior to his discharge. Resident Activity Tracking Resident Involvement: Resident Care Provided Care Provided: Adult Hospital Medicine
== END 2023-11-04 08:26 | disposition short-term general hospital (02) | DRG 395 ==
LOC: ED 00:27 → SUATTDRO 04:11 → 3W 04:11